=== PATIENT | female | born 1950 | race Caucasian/White ===

== ENCOUNTER 2018-03-04 06:30 | Inpatient (IN) | payer OTHER, MEDICARE ==
[2018-02-11 12:16] VITALS: BMI 39.0
--- NOTE | 2018-02-11 13:16 | PAT Medication Instructions ---
Service Date Feb 11, 2018. Current Home Medication List Acetaminophen (Tylenol), 500 MG PO PRN Albuterol Hfa (Ventolin Hfa), 2-4 PUFFS INH Q6H PRN for SOB/Wheezing Ascorbic Acid (Cvs Vitamin C), 1 TAB PO QAM Celecoxib (Celebrex), 1 TAB PO QAM Cholecalciferol (Vitamin D3), 3 TABS PO QAM Cyclosporine (Ophth) (Restasis), 2 DROPS OP BID Dulaglutide (Trulicity), 1 DOSE INJ WK Hydrochlorothiazide (Hydrochlorothiazide), 1 TAB PO QAM Hydrocodon/Acetaminophen 5MG/300MG (Vicodin (5MG/300MG)), 1 TAB PO Q4H PRN for Pain Hydroxychloroquine Sulfate (Hydroxychloroquine Sulfat), 1 TAB PO QPM Levothyroxine Sodium (Levothyroxine Sodium), 1 TAB PO DAILYBL Lisinopril (Zestril), 20 MG PO QAM Lorazepam (Lorazepam), 1 TAB PO HS Magnesium Oxide (Mag-Ox), 400 MG PO HS Metformin Hcl Er (Glucophage Er), 2 TAB PO QPM Montelukast Sod (Montelukast Sodium), 1 TAB PO HS Multivitamin (Multivitamin), 1 TAB PO QAM Ondansetron (Ondansetron HCl), 1 TAB PO Q8 PRN for Nausea or Vomiting Potassium (Potassium), 1 TAB PO HS Probiotic Product (Probiotic), 1 CAP PO QAM Ranitidine (Zantac), 1 TAB PO BID [agilease], 2 TAB PO QAM Medication Instructions For Your Scheduled Surgery -Follow your surgeon's instructions for: Celecoxib (Celebrex), 1 TAB PO QAM -Continue as directed: Dulaglutide (Trulicity), 1 DOSE INJ WK - Hold the following medications 2 weeks prior to surgery: [agilease], 2 TAB PO QAM - Hold the following medications the morning of surgery: Ascorbic Acid (Cvs Vitamin C), 1 TAB PO QAM Cholecalciferol (Vitamin D3), 3 TABS PO QAM Hydrochlorothiazide (Hydrochlorothiazide), 1 TAB PO QAM Lisinopril (Zestril), 20 MG PO QAM Multivitamin (Multivitamin), 1 TAB PO QAM Probiotic Product (Probiotic), 1 CAP PO QAM - Take the following medications the morning of surgery with a sip of water: Acetaminophen (Tylenol), 500 MG PO PRN (if needed, can be taken up to four hours before surgery) Albuterol Hfa (Ventolin Hfa), 2-4 PUFFS INH Q6H PRN for SOB/Wheezing (if needed , and bring it with yo to the hospital) Cyclosporine (Ophth) (Restasis), 2 DROPS OP BID (bring with you to the hospital) Levothyroxine Sodium (Levothyroxine Sodium), 1 TAB PO DAILY Hydrocodon/Acetaminophen 5MG/300MG (Vicodin (5MG/300MG)), 1 TAB PO Q4H PRN for Pain (if needed, can be taken up to four hours before surgery) Ondansetron (Ondansetron HCl), 1 TAB PO Q8 PRN for Nausea or Vomiting (if needed ) Ranitidine (Zantac), 1 TAB PO BID - Take the following medications as scheduled the night before surgery: Acetaminophen (Tylenol), 500 MG PO PRN (if needed) Albuterol Hfa (Ventolin Hfa), 2-4 PUFFS INH Q6H PRN for SOB/Wheezing (if needed) Cyclosporine (Ophth) (Restasis), 2 DROPS OP BID Hydrocodon/Acetaminophen 5MG/300MG (Vicodin (5MG/300MG)), 1 TAB PO Q4H PRN for Pain (if needed) Hydroxychloroquine Sulfate (Hydroxychloroquine Sulfat), 1 TAB PO QPM Lorazepam (Lorazepam), 1 TAB PO HS Magnesium Oxide (Mag-Ox), 400 MG PO HS Metformin Hcl Er (Glucophage Er), 2 TAB PO QPM Montelukast Sod (Montelukast Sodium), 1 TAB PO HS Ondansetron (Ondansetron HCl), 1 TAB PO Q8 PRN for Nausea or Vomiting (if needed ) Potassium (Potassium), 1 TAB PO HS Ranitidine (Zantac), 1 TAB PO BID If you have any questions please call us at [phone] or [phone] or [phone]
--- NOTE | 2018-02-11 14:13 | DIAGNOSTIC IMAGING REPORT ---
CHEST 2 VIEWS ROUTINE HISTORY: 67 years-old Female PAT preoperative exam. No acute chest complaints. COMPARISON: None available TECHNIQUE: PA and lateral views of the chest FINDINGS: Cardiac silhouette is enlarged. There is no pneumothorax, pleural effusion, focal airspace consolidation or overt pulmonary edema. Linear subsegmental bibasilar opacities favor atelectasis. Surgical clips of the right upper abdomen are noted suggesting prior cholecystectomy. Mild gaseous distention of the imaged colon. 60% anterior endplate compression deformity of a lower thoracic vertebral segment, likely T12 is technically age-indeterminate however appears chronic. IMPRESSION: 1. Cardiomegaly without acute process. 2.n60% anterior endplate compression deformity of a lower thoracic vertebral segment, likely T12 is age-indeterminate however appears chronic. The above report was generated using voice recognition software. It may contain grammatical, syntax or spelling errors. Electronically signed by: Miguel Duran M.D. 02/11/2018 2:12 PM Dictated Date/Time: 02/11/2018 2:09 PM
[2018-02-12 07:20] LABS: HEMOGLOBIN A1C 6.3 % (4.5-5.6)
--- NOTE | 2018-02-24 17:46 | HISTORY & PHYSICAL EXAMINATION ---
DATE OF ADMISSION: 03/04/2018 CHIEF COMPLAINT: Bilateral knee pain and discomfort, left side greater than right. HISTORY OF PRESENT ILLNESS: The patient is a 67-year-old female from [place] who presents for treatment of her knees. She has got a long history of bilateral knee pain and discomfort, left side a bit worse than the right. She has been through extensive conservative treatment in the past, which has become less successful over time. She has been trying to put this off, but it is really affecting her quality of life. She cannot walk for any significant distance. She has nighttime pain. Injection has helped her only temporarily. She would like to have her left knee replaced. Of note, the patient did have a right hip replaced by Dr. Mayes in 2008, has done well from that. She has had multiple foot operations that have not gone so well. PAST MEDICAL HISTORY: 1. Asthma. 2. Sleep apnea with CPAP machine. 3. Diabetes x10 years. 4. Hypothyroidism. 5. Back pain. 6. Gastroesophageal reflux disease. 7. Hiatal hernia. 8. Obesity with BMI of 40. PREVIOUS SURGICAL HISTORY: 1. Right hip [place] [address] Mayes. 2. Multiple foot operations done by Dr. Bender. 3. Appendectomy. 4. Hysterectomy. 5. Cholecystectomy 6. Thyroidectomy. 7. Carpal tunnel release. 8. Cataract surgery. ALLERGIES: DEMEROL. CURRENT MEDICATIONS: Include: 1. Lisinopril. 2. Hydrochlorothiazide 3. Celebrex. 4. Singulair. 5. Hydroxychloroquine 6. Metformin. 7. Trulicity. 8. Levothyroxine. 9. Ranitidine. 10. Restasis. 11. Ventolin inhaler. 12. Ondansetron. 13. Ativan. 14. Vicodin. 15. Multivitamin. 16. Vitamin C. 17. Vitamin D. 18. Magnesium. 19. Potassium. 20. Probiotic. 21. AgilEase. 22. Tylenol. SOCIAL HISTORY: This is a 67-year-old female patient from [place]. She lives by herself. Does not smoke. Rare alcohol intake. FAMILY HISTORY: Significant for diabetes. REVIEW OF SYSTEMS: Significant for diabetes. Denies any current chest pain or shortness of breath. No history of DVT or PE. PHYSICAL EXAMINATION: GENERAL: This is a pleasant middle-aged female, but looks to be in reasonably good health. HEENT: Benign. NECK: Supple. No lymphadenopathy. LUNGS: Clear to auscultation. HEART: Regular rate and rhythm. ABDOMEN: Soft, nontender, nondistended. EXTREMITIES: Grossly neurovascularly intact except as follows: Examination of both knees reveals the patient walks independently. Examination of the left knee reveals a slight valgus alignment. She got a moderate soft tissue envelope. Lvyty-ge-ltzljccu size knee effusion. Range of motion is 5-120. No instability. No pain with hip motion. Examination of the right knee reveals slight valgus alignment. Small knee effusion. Range of motion is 5-125. No instability. X-RAYS: X-rays of the left knee revealed advanced left knee DJD. She had a complete loss of her lateral joint space. She got significant patellofemoral disease as well. ASSESSMENT: A 67-year-old female with bilateral knee pain, degenerative joint disease, unresponsive to conservative treatment. The left side is a worse than the right and she would like to have her left knee replaced. PLAN: We will take her to the operating room and do left total knee replacement. The risks and benefits of this procedure were explained to the patient including, but not limited to DVT, PE, , infection, neurological injury, vascular injury, bleeding problem, pain, limited range of motion, stiffness, failure to relieve symptoms, incomplete relief of symptoms, need for further surgery in future, fracture, leg length inequality, nerve palsy, need for blood transfusion, etc. The patient understands and desires to proceed. Informed consent was obtained. We will hold her lisinopril on the morning of surgery. She will hold her metformin the morning of surgery as well. She will bring her CPAP machine to the hospital. She is planning to be discharged to home likely with some home health and a friend who will stay with her. MG
[~2018-03-04] VITALS: Ht 167.6 cm; Wt 111.2 kg
[2018-03-04] VITALS (8 sets, daily range): BP systolic 98–128; BP diastolic 62–80; PULSE 57–69; TEMP 36.6–36.9; O2SAT 96–100; Ht 167.6 cm; Wt 111.2 kg
[~2018-03-04 06:30] MED LIST: ACET-1256 PO; ACETAMINOPHEN 500 MG TAB PO SCH; AGILEASE PO; ATV5X PO; BUPIVACAINE LIPOSOME 266 MG, BUPIVACAINE/EPINEPHRINE INJ 50 ML, SODIUM CHLORIDE 0.9% PF... INFIL SCH; CEFAZOLIN 2000MG IV PUSH 15 ML IV SCH; CHOL20007 PO; CLB200 PO; CYCL0.052 OP; DULA1INJ INJ; FAMOTIDINE 20 MG TAB PO SCH; FENTANYL CITRATE INJ 50 MCG/1 ML 2 ML VIAL ONE; GABAPENTIN 300 MG CAP PO SCH; HYDR-3419 PO; HYDR25TA5 PO; LACTATED RINGER'S 1000ML IV SCH; LEVO125T5 PO; LIDOCAINE HCL 2% 2 ML VIAL (20MG/ML) ONE; LISI-725 PO; MAGN400T6 PO; METF500T5 PO; METOCLOPRAMIDE HCL 10 MG TAB PO SCH; MIDAZOLAM HCL 1 MG/ML 2ML VIAL ONE; MISCCAP80 PO; MULT-506 PO; ONDA4TAB9 PO; PLQ200 PO; POTA99TA PO; PROPOFOL IV EMULSION 10 MG/ML 20 ML VIAL ONE; RANI150T85 PO; SCOPOLAMINE 1.5 MG TDSY TD SCH; SNG10 PO; TRANEXAMIC ACID INJ 1,000 MG x 1 Bag Intra-Op IV SCH; VNTHFA/IN INH; [UNRECOGNIZED DRUG - CODE] PO
--- NOTE | 2018-03-04 06:53 | History & Physical Bridge Note ---
H&P Re-Evaluation Bridge Note: I have examined the patient, reviewed the History & Physical and in the interval since the performance of the History & Physical I have noted the following changes of clinical significance: No changes noted
[2018-03-04] MEDS ORDERED: FENTANYL CITRATE INJ 50 MCG/1 ML 2 ML VIAL IV PRN (07:30)
[2018-03-04] MEDS ORDERED: PROMETHAZINE HCL INJ 12.5 MG in SODIUM CHLORIDE 0.9% 50ML 50 ML IV PRN (07:30)
[2018-03-04] MEDS ORDERED: PHENYLEPHRINE 100MCG/ML 5ML SYR IV PRN (07:30)
[2018-03-04] MEDS ORDERED: ONDANSETRON INJ 2 MG/ML 2 ML VIAL IV PRN ×2 (07:30→11:00)
[2018-03-04] MEDS ORDERED: EpHEDrine SULFATE INJ 50 MG/ML AMP IV PRN (07:30)
[2018-03-04] MEDS ORDERED: HYDROmorphone INJ 0.5 MG/0.5 ML SYR IV PRN ×2 (07:30→11:00)
[2018-03-04] MEDS ORDERED: ATROPINE SULFATE 0.1 MG/ML 5ML SYR IV PRN (07:30)
[2018-03-04] MEDS ORDERED: BUPIVACAINE 0.25% 30 ML VIAL ONE ×2 (07:32→08:52)
[2018-03-04] MEDS ORDERED: BUPIVACAINE 0.5 % 5 MG/1 ML PF 10ML VIAL ONE (07:32)
[2018-03-04] MEDS ORDERED: ONDANSETRON INJ 2 MG/ML 2 ML VIAL ONE (07:49)
[2018-03-04] MEDS ORDERED: DEXAMETHASONE SOD INJ 4 MG/ML VIAL ONE (07:49)
[2018-03-04] MEDS ORDERED: BUPIVACAINE LIPOSOME 1/3% 266 MG/20 ML VIAL ONE (08:52)
[2018-03-04] MEDS ORDERED: BACITRACIN 50000 UNIT VIAL ONE (08:52)
[2018-03-04] MEDS ORDERED: SODIUM CHLORIDE 0.9% PF 50 ML VIAL ONE (08:52)
[2018-03-04] MEDS ORDERED: EpINEphrine INJ 1MG/ML AMP 1 MG/ML AMP ONE (08:53)
[2018-03-04] MEDS ORDERED: EpHEDrine SULFATE 50MG/5ML SYR ONE (09:28)
[2018-03-04] MEDS ORDERED: MIDAZOLAM HCL 1 MG/ML 2ML VIAL ONE (09:47)
[2018-03-04] MEDS ORDERED: PROPOFOL IV EMULSION 10 MG/ML 20 ML VIAL ONE ×2 (09:55→10:39)
--- NOTE | 2018-03-04 10:56 | [facility] Post Operative Brief Note ---
Immediate Operative Summary Operative Date March 04, 2018. Pre-Operative Diagnosis Left Knee Advanced Degenerative Joint Disease Post-Operative Diagnosis Left Knee Advanced Degenerative Joint Disease Procedure(s) Performed Left Total Knee Arthroplasty Surgeon Dr. Keating Fish Cutting Machine Operator Surgeon(s) BOZENA Gibbs Estimated Blood Loss 50 ml Findings Consistent with Post-Op Diagnosis Fluids (cc crystalloids) 1000 cc Specimens A. Left Knee Bone and Tissue Drains None Anesthesia Type MAC Spinal Regional Complication(s) none Disposition Accompanied Pt To Recover: no Disposition: Recovery Room / PACU Overlapping Procedure I was present for: the critical portions of procedure. I was immediately available: during the entire case
[2018-03-04] MEDS ORDERED: MAGNESIUM HYDROXIDE SUSP 30 ML UDC PO PRN (11:00)
[2018-03-04] MEDS ORDERED: METOCLOPRAMIDE HCL INJ 5 MG/ML 2 ML VIAL IV PRN (11:00)
[2018-03-04] MEDS ORDERED: GLUCOSE 10 TABS/TUBE PO PRN (11:00)
[2018-03-04] MEDS ORDERED: DEXTROSE 50% 50 ML SYR IV PRN (11:00)
[2018-03-04] MEDS ORDERED: ZOLPIDEM TARTRATE 5 MG TAB PO PRN (11:00)
[2018-03-04] MEDS ORDERED: ALUMINUM/MAGNESIUM/SIMETH (MAALOX MAX) 30 ML UDC PO PRN (11:00)
[2018-03-04] MEDS ORDERED: GLUCAGON FOR INJ 1 MG VIAL SQ PRN (11:00)
[2018-03-04] MEDS ORDERED: DiphenhydrAMINE HCL 50 MG/ML VIAL IV PRN (11:00)
[2018-03-04] MEDS ORDERED: CARBOHYDRATES FOR HYPOGLYCEMIA PO PRN (11:00)
[2018-03-04] MEDS ORDERED: BISACODYL 10 MG SUPP PR PRN (11:00)
[2018-03-04] MEDS ORDERED: SILVER SULFADIAZINE 1% CR 50 GM JAR EXT PRN (11:00)
[2018-03-04] MEDS ORDERED: GLUCOSE 40% GEL 15 GM TUBE PO PRN (11:00)
--- NOTE | 2018-03-04 11:34 | Anesthesiology Progress Note ---
Anesthesia Post Op Note Date & Time March 04, 2018 at 11:34 Vital Signs Pain Intensity: 0 Vital Signs Past 12 Hours Date Time Temp Pulse Resp B/P (MAP) Pulse Ox O2 Delivery O2 Flow Rate FiO2 03/04/18 11:21 70 12 03/04/18 11:21 68 12 95/50 99 03/04/18 11:16 67 14 93/44 100 03/04/18 11:16 65 14 03/04/18 11:11 60 12 108/47 100 03/04/18 11:11 61 12 03/04/18 11:07 101/53 03/04/18 11:06 81 13 03/04/18 11:06 84 13 100 03/04/18 11:04 103/47 03/04/18 11:02 87/63 03/04/18 11:01 37.0 81 20 103/47 100 Oxymask 10 03/04/18 06:57 36.8 61 20 128/66 99 Room Air Notes Mental Status: alert / awake / arousable, participated in evaluation Pt Amnestic to Procedure: Yes Nausea / Vomiting: adequately controlled Pain: adequately controlled Airway Patency, RR, SpO2: stable & adequate BP & HR: stable & adequate Hydration State: stable & adequate Neuraxial Anesthesia: was administered, sensory block is resolving Anesthetic Complications: no major complications apparent Awake, doing well, no complaints. VSS.
--- NOTE | 2018-03-04 11:55 | DIAGNOSTIC IMAGING REPORT ---
LEFT KNEE 2 VIEWS History: Left total knee arthroplasty. Degenerative arthritis. Postop. FINDINGS: The patient is status post a left total knee arthroplasty. The hardware is intact. No fracture or dislocation. Skin raymon are in place. IMPRESSION: Left total knee arthroplasty. No evidence for hardware complication. Electronically signed by: Chu Browning M.D. 03/04/2018 11:54 AM Dictated Date/Time: 03/04/2018 11:51 AM
--- NOTE | 2018-03-04 13:01 | OPERATIVE REPORT ---
DATE OF OPERATION: 03/04/2018 SURGEON: Ajay Keating MD OIL HEATERMAN: BOZENA Rdz PREOPERATIVE DIAGNOSIS: Left knee degenerative joint disease. POSTOPERATIVE DIAGNOSIS: Same. PROCEDURE PERFORMED: Left cemented posterior stabilized total knee arthroplasty. COMPLICATIONS: None. ESTIMATED BLOOD LOSS: 50 mL. FLUID REPLACEMENT: 1000 mL crystalloid fluid replacement. ANESTHESIA: Spinal with adductor canal block. DRAINS: None. SPECIMENS: Left knee sent for pathology. TOURNIQUET TIME: 59 minutes at 300 mmHg. OPERATIVE INDICATIONS: The patient is a 67-year-old female who has had a very long history of bilateral knee pain and discomfort, left side a bit worse than the right. She had been through extensive conservative treatment which has failed. This is really starting to limit her lifestyle and she elected to proceed with total knee arthroplasty on the left side. OPERATIVE FINDINGS: Operative findings revealed advanced left knee DJD. She had grade 4 [id number]-[id number] disease in all 3 compartments, most severe in the lateral and patellofemoral compartments with eburnation in both areas. She had valgus alignment to her knee. She had a moderate sized joint effusion. OPERATIVE IMPLANTS: Operative implants consisted of: 1. Biomet Vanguard size 62.5 left posterior bifemoral component. 2. Biomet size 67 tibial tray. 3. A 12 mm posterior stabilized polyethylene insert. 4. A 31 x 8 all poly patella. OPERATIVE PROCEDURE: The patient was taken to the operating room, identified and placed on the operating table room in supine position. All contact areas were appropriately padded. IV antibiotics were provided by anesthesia team. A spinal anesthetic and adductor canal block had been provided in the holding area. Melgar catheter was placed in sterile fashion. Left thigh tourniquet was then placed and left lower extremity was then prepped and draped in usual sterile fashion. The left leg was elevated and exsanguinated with Esmarch. Tourniquet was placed at 300 mmHg. An anterior approach to the left knee was then performed through a longitudinal incision centered over the patella. Sharp dissection was carried through subcutaneous tissue down to the level of the extensor mechanism. A medial parapatellar arthrotomy incision was made. Some subperiosteal dissection was carried out medially. The fat pad resected from beneath the patellar tendon. Lateral patellofemoral ligament was released. Patella was everted and knee was flexed. There are some portions of the patella laterally which were excised. The osteophytes were taken off the distal femur. The ACL and PCL were then released from the distal femur. The tibia subluxated anteriorly. The external tibial alignment jig was then placed in the anterior face of the tibia and adjusted 14 mm medially. Proximal tibial cut was made to remove about 2-3 mm of bone from the medial side. Tibia was sized to a size 67. Attention was then drawn to the femur. The distal femur was entered with a sharp drill. The intramedullary canal was suctioned. A left 5-degree valgus cutting guide was placed. Distal femoral cutting block was pinned in place and distal femoral cut was made to take an additional 3 mm of bone off the distal femur. The knee was then brought out into extension. I did release just a little bit the IT band to equalize the extension gap. The femur was then sized to a size 62.5. We did downsize this slightly. The AP cutting block was pinned parallel to the epicondylar axis, which was 8 degrees of external rotation. The anterior cut, anterior chamfer, posterior cut, posterior chamfer cuts were made. Box cutting guide was placed and adjusted slightly lateral and the box cut was made. The knee was flexed. The remnants of the medial and lateral menisci were excised. The osteophytes were taken off the posterior aspect of the femur. I did release the popliteus in order to equalize the flexion gap. The trial femoral component was placed. Tibial tray was pinned in maximum external rotation, and drill and stem punch were used to create defect in proximal tibia for the tibial tray. The knee was then trialed and the 12 mm insert fit most appropriately. Attention was then drawn to the patella. The patella was cleaned of all soft tissue. Patella thickness measured 18 mm in thickness, it was cut down to 12. It was sized to a size 31 patella. Lateral osteophyte was removed. Patella button was placed. Knee was taken through range of motion and patella tracked nicely with no thumbs test. Attention was then drawn toward placement of the permanent components. All trial components were removed. A bone plug was placed in the distal femur to limit blood loss. A double batch of Palacos G cement was mixed. A left size 62.5 posterior stabilized femoral component, size 67 tibial tray, 12 mm posterior stabilized polyethylene insert, and a 31 x 8 all poly patella then cemented in place. Knee was brought into full extension until cement hardened. A final cement check was then performed. The pericapsular tissues were injected with a total of 100 mL of a combination of 20 mL of Exparel, 30 mL of normal saline, 50 mL of 0.25% Marcaine with epinephrine. The patient did receive 1 gram of tranexamic acid. The tourniquet was then let down for final tourniquet time of 59 minutes. Hemostasis was assured with use of electrocautery. The wound was once again irrigated. The extensor mechanism was then closed with a combination of #1 PDS suture and #1 Vicryl suture in [id number] fashion. Extensor mechanism was checked and found to be intact. Subcutaneous tissue was then closed with #2 Dexon suture in a buried interrupted fashion. Skin was closed with skin raymon. Leg was then cleaned, dried and a sterile dressing of Xeroform, 4 x 4's, sterile cast padding and Michael bandage were applied. The patient was then transferred to the recovery room in stable condition. The patient tolerated the procedure well with no complication. All needle and sponge counts were correct at the end of the operation. I attest to the content of the Intraoperative Record and any orders documented therein. Any exception s are noted below.
[2018-03-04] MEDS ORDERED: ALBUTEROL HFA 8 GM INHALER INH PRN (13:15)
[2018-03-04] MEDS: SODIUM CHLORIDE 0.9% 1000ML 1,000 ML IV SCH ×2 (13:30→21:46)
[2018-03-04] MEDS: KETOROLAC TROMETHAMINE 15 MG/ML VIAL IV. SCH ×2 (13:32→20:39)
[2018-03-04] MEDS ORDERED: ONDANSETRON 4 MG TAB PO PRN (14:00)
--- NOTE | 2018-03-04 14:05 | PROGRESS NOTE ---
DATE: 03/04/2018 SUBJECTIVE: A 67-year-old female postop from a left knee replacement. She is doing well. Pain is controlled. Just starting to get some pain in her leg. No chest pain or shortness of breath. Not feeling dizzy or lightheaded. OBJECTIVE: VITAL SIGNS: Temperature is 36.6. Vital signs stable. PHYSICAL EXAMINATION: GENERAL: Reveals a pleasant, middle-aged female. She is sitting up in bed and looks quite comfortable. She is talking with one of her friends. LUNGS: Clear to auscultation. HEART: Has a regular rate and rhythm. ABDOMEN: Soft, nontender, nondistended. EXTREMITIES: Grossly neurovascularly intact except as follows: Examination of the left leg reveals the leg to be well aligned. Dressing is clean, dry and intact. She can dorsiflex and plantarflex her foot appropriately. She is neurologically intact. X-RAYS: X-ray of the left knee from recovery room reviewed. It shows a left cemented posterior stabilized total knee arthroplasty. Components looked to be in good position. No signs of problems. ASSESSMENT: A 67-year-old white female postop from a left knee replacement, doing well. Pain is controlled. She is neurologically intact. PLAN: 1. DVT prophylaxis including thigh-high TEDs, SCDs, and aspirin twice a day. 2. PT/OT. Weight bear as tolerated. Left total knee protocol. 3. Pain control, doing well with current pain regimen. 4. IV antibiotics x 24 hours. 5. Disposition: She is open to be discharged home with some home health. She has some friends that are going to come and stay with her and help her for the first couple weeks.
[2018-03-04] MEDS: ACETAMINOPHEN 500 MG TAB PO SCH ×2 (14:55→22:37)
[2018-03-04] MEDS: CHECK SCOPOLAMINE PATCH PLACEMENT SCH ×2 (16:15→23:07)
[2018-03-04] MEDS ORDERED: TRANEXAMIC ACID INJ 1,000 MG in SODIUM CHLORIDE 0.9% 100ML 100 ML IV SCH (17:00)
[2018-03-04] MEDS: CEFAZOLIN IV 2,000 MG in SYRINGE 0 ML IV SCH (17:32)
[2018-03-04] MEDS: FERROUS GLUCONATE 324 MG TAB PO SCH (17:33)
[2018-03-04] MEDS: INSULIN HUMAN REGULAR SC SCH ×2 (17:34→20:59)
[2018-03-04] MEDS: OXYCODONE HCL IR 5 MG TAB (IMMEDIATE RELEASE) PO PRN (17:51)
[2018-03-04] MEDS: TAPENTADOL ER 50 MG TABCR PO SCH (20:38)
[2018-03-04] MEDS: LORAZEPAM 0.5 MG TAB PO SCH (20:38)
[2018-03-04] MEDS: MONTELUKAST SOD 10 MG TAB PO SCH (20:39)
[2018-03-04] MEDS: RANITIDINE HCL 150 MG TAB PO SCH (20:39)
[2018-03-04] MEDS: MAGNESIUM OXIDE 400 MG TAB PO SCH (20:40)
[2018-03-04] MEDS: DOCUSATE SODIUM 100 MG CAP PO SCH (20:40)
[2018-03-04] MEDS: ASPIRIN 81 MG ECTAB PO SCH (20:41)
[2018-03-04] MEDS: HYDROXYCHLOROQUINE SULFATE 200 MG TAB PO SCH (20:41)
[2018-03-04] MEDS: SENNA 8.6 MG TAB PO SCH (20:41)
[2018-03-05] MEDS: KETOROLAC TROMETHAMINE 15 MG/ML VIAL IV. SCH ×4 (01:29→20:53)
[2018-03-05] MEDS: CEFAZOLIN IV 2,000 MG in SYRINGE 0 ML IV SCH (01:29)
[2018-03-05 03:05] VITALS: BP 105/65; PULSE 72; TEMP 36.7; O2SAT 96
[2018-03-05] MEDS: SODIUM CHLORIDE 0.9% 1000ML 1,000 ML IV SCH (05:51)
[2018-03-05] MEDS: LEVOTHYROXINE 125 MCG TAB PO SCH (05:52)
[2018-03-05] MEDS: ACETAMINOPHEN 500 MG TAB PO SCH ×2 (05:53→18:55)
[2018-03-05 06:09] LABS: HEMATOCRIT 28.4 % (37-47); HEMOGLOBIN 9.5 g/dL (12.0-16.0); MEAN CELL VOLUME 86.9 fL (80-100); MEAN CORPUSCULAR HEMOGLOBIN 29.1 pg (25-34); MEAN CORPUSCULAR HGB CONC 33.5 g/dl (32-36); MEAN PLATELET VOLUME 8.8 fL (7.4-10.4); PLATELET COUNT 175 K/uL (130-400); RED CELL DISTRIBUTION WIDTH CV 13.1 % (11.5-14.5); RED CELL DISTRIBUTION WIDTH SD 41.9 fL (36.4-46.3); WHITE BLOOD COUNT 7.73 K/uL (4.8-10.8)
[2018-03-05 06:37] VITALS: BP 98/62; PULSE 55; TEMP 36.6; O2SAT 100
[2018-03-05 06:42] LABS: CALCIUM 7.9 mg/dl (8.5-10.1); CREATININE 0.93 mg/dl (0.60-1.20)
[2018-03-05] MEDS: INSULIN HUMAN REGULAR SC SCH ×4 (08:00→21:00)
[2018-03-05] MEDS: CHECK SCOPOLAMINE PATCH PLACEMENT SCH ×2 (08:00→16:00)
[2018-03-05] MEDS: OXYCODONE HCL IR 5 MG TAB (IMMEDIATE RELEASE) PO PRN ×3 (08:22→20:57)
[2018-03-05] MEDS: TAPENTADOL ER 50 MG TABCR PO SCH ×2 (08:23→20:56)
[2018-03-05] MEDS: FERROUS GLUCONATE 324 MG TAB PO SCH ×3 (08:24→18:55)
[2018-03-05] MEDS: DOCUSATE SODIUM 100 MG CAP PO SCH ×2 (08:24→20:51)
[2018-03-05] MEDS: MULTIVITAMIN TAB PO SCH (08:25)
[2018-03-05] MEDS: RANITIDINE HCL 150 MG TAB PO SCH ×2 (08:25→20:52)
[2018-03-05] MEDS: ASCORBIC ACID 500 MG TAB PO SCH (08:26)
[2018-03-05] MEDS: ASPIRIN 81 MG ECTAB PO SCH ×2 (08:26→20:54)
[2018-03-05] MEDS: HYDROCHLOROTHIAZIDE 25 MG TAB PO SCH (08:27)
[2018-03-05] MEDS: PANTOprazole SOD 40 MG TAB PO SCH (08:27)
[2018-03-05] MEDS: CHOLECALCIFEROL 1000 INTER.UNIT TAB PO SCH (08:29)
[2018-03-05] MEDS: CycloSPORINE 0.05% 0.4 ML 30 UDV/BOX OP SCH ×2 (08:31→20:53)
[2018-03-05] MEDS: LISINOPRIL 20 MG TAB PO SCH (09:00)
[2018-03-05] MEDS ORDERED: AGILEASE PO SCH (09:00)
[2018-03-05] MEDS ORDERED: MULTIVITAMIN TAB PO SCH (09:00)
--- NOTE | 2018-03-05 10:18 | PROGRESS NOTE ---
DATE: 03/05/2018 SUBJECTIVE: A 67-year-old white female, postop day 1 from a left knee replacement. She is doing pretty well. Pain is better than she expected. No chest pain or shortness of breath. Not feeling dizzy or lightheaded. OBJECTIVE: VITAL SIGNS: Temperature 36.6. Vital signs stable. GENERAL: Reveals a pleasant, middle-aged female. She is sitting up in bed, looks pretty comfortable. LUNGS: Clear to auscultation. HEART: Regular rate and rhythm. ABDOMEN: Soft, nontender, nondistended. EXTREMITIES: Grossly neurovascularly intact except as follows. Examination of the left leg reveals it to be well aligned. There is a little reinforcement of her dressing from some slight bloody drainage. She can dorsiflex and plantarflex her foot appropriately. She is neurologically intact. LABORATORY DATA: Hemoglobin 9.5. Hematocrit 28.4. Electrolytes are stable. ASSESSMENT: A 67-year-old white female postop day 1 from a left knee replacement, doing pretty well. Pain is controlled. She is a slightly anemic, but without symptoms. PLAN: 1. DVT prophylaxis including thigh-high TEDs, SCDs, and aspirin twice a day. 2. PT/OT. Weightbear as tolerated. Left total knee protocol. 3. Pain control, doing well with current pain regimen. 4. Anemia. She is asymptomatic. We will continue iron supplementation. 5. Disposition: Plan to discharge to home with some home health once adequately recovered.
[2018-03-05 11:15] VITALS: BP 110/71; PULSE 66; TEMP 36.8; O2SAT 97
[2018-03-05 15:16] VITALS: BP 122/74; PULSE 63; TEMP 36.9; O2SAT 100
[2018-03-05] MEDS ORDERED: RXC5 PO (18:28)
[2018-03-05] MEDS ORDERED: ACET-24 PO (18:28)
[2018-03-05] MEDS ORDERED: FRRG PO (18:28)
[2018-03-05] MEDS ORDERED: ASPI-320 PO (18:28)
--- NOTE | 2018-03-05 18:47 | Discharge Instructions ---
Discharge Instructions Date of Service March 05, 2018. Admission Reason for Admission: Left Knee Degenerative Joint Disease Discharge Discharge Diagnosis / Problem: Left Knee Replacement Discharge Goals Goal(s): Decrease discomfort, Improve function, Increase independence, Improve disease control, Therapeutic intervention Activity Recommendations Activity Limitations: per Instructions/Follow-up section Weightbearing Status: Left weightbearing . Instructions / Follow-Up Instructions / Follow-Up ACTIVITY RECOMMENDATIONS: Physical Therapy: * You will go to physical therapy three times each week for four to six weeks after your surgery in order to regain your knee range of motion and to retrain your knee to work properly. * It is just as important to make sure you are getting your knee perfectly straight as it is to regain your knee bend. * Taking a pain pill an hour before therapy can help you have a more productive and comfortable therapy session. Home Exercise: * You were shown a series of exercises (heel props, heel slides, etc.) in the hospital. Do these exercises three to four times each day including the exercises you were shown in physical therapy. Walking: * Get up and walk several times each day. For the first four weeks, try not to stand or walk for more than one hour at a time. If you do stand or walk for more than one hour, you will not hurt anything, but your knee and leg will likely swell. * As you feel comfortable, you may change from the walker or crutches to a cane and then to independent walking. MEDICATIONS: New Medicine: * You will likely be taking one or more of these medications: 1. Oxycodone - A quick and shorter-acting pain medication. Take one to two tablets every four to six hours to lessen your pain. 2. Iron Sulfate - Take two times each day for the month after surgery to help you replace the blood lost during surgery. 3. Aspirin - Thins your blood to lessen the chance of forming a blood clot. * The most common side effects of pain medicine and iron are nausea and constipation. If nausea or constipation is too much of a problem or if you have any questions about your new medicines or doses, call [facility] at . We will try to help you manage these issues. VERY IMPORTANT TO READ AND REVIEW" Pain: * The immediate post-operative period after knee replacement surgery is often quite painful. * You are given a prescription for pain medicine. You should take it, as directed, when you need it, especially before physical therapy and before going to bed. Pain that interferes with sleep is very common and can last several months. * You will likely need pain medicine for the first four to six weeks. It will not stop all of the pain. The pain will lessen and as you feel better, you may change to milder pain medicine such as Tylenol. * The most common side effects of pain medicine are nausea and constipation, so don't take more than you need. SPECIAL CARE INSTRUCTIONS: TEDs/Elastic Stockings: * The white elastic stockings help limit swelling and prevent blood clots from forming in your legs. The more you wear them, the more they work. * Wear them for six weeks after knee replacement surgery and four weeks after partial knee replacement. Prevention of Infection: * Take antibiotics one hour before any dental cleaning, dental work, urological procedure, gastrointestinal procedure or any invasive surgery in order to prevent your new joint from getting infected. * You may get the antibiotics from the doctor performing the procedure or you may call our office at before and we will call in a prescription to the pharmacy of your choice. Things to Watch For: * Drainage from the incision site that occurs more than one week after your surgery. * Severely increased knee/leg pain or swelling. * Increased redness at the incision site. * Fever above 102 degrees Fahrenheit. * Unusual chest pain or shortness of breath. * Unusual pain or burning with urination. Call [facility] at with any of the above problems or if you have any questions about your medicines or recovery. FOLLOW UP VISIT: Make an appointment to see your doctor for approximately two weeks after surgery for a progress check and staple removal by calling the office at . Current Hospital Diet Patient's current hospital diet: Diabetes Type 2 Diet Discharge Diet Recommended Diet: Diabetes Type 2 Diet Procedures Procedures Performed: Left Total Knee Arthroplasty Pending Studies Studies pending at discharge: no Laboratory Results Hemoglobin A1c Test 02/11/18 13:47 Range/Units Estimated Average Glucose 134 mg/dl Hemoglobin A1c 6.3 H 4.5-5.6 % Medical Emergencies . Who to Call and When: Medical Emergencies: If at any time you feel your situation is an emergency, please call [phone] immediately. . Non-Emergent Contact Non-Emergency issues call your: Surgeon . "Provider Documentation" section prepared by Ajay Keating. .
[2018-03-05] MEDS: SENNA 8.6 MG TAB PO SCH (20:51)
[2018-03-05] MEDS: MAGNESIUM OXIDE 400 MG TAB PO SCH (20:52)
[2018-03-05] MEDS: MONTELUKAST SOD 10 MG TAB PO SCH (20:52)
[2018-03-05] MEDS: HYDROXYCHLOROQUINE SULFATE 200 MG TAB PO SCH (20:53)
[2018-03-05] MEDS: LORAZEPAM 0.5 MG TAB PO SCH (20:57)
[2018-03-05] MEDS ORDERED: NURSING DECISION MEDICATION ORDER SCH (22:00)
[2018-03-05 23:07] VITALS: BP 111/68; PULSE 72; TEMP 37; O2SAT 100
[2018-03-06] MEDS: CHECK SCOPOLAMINE PATCH PLACEMENT SCH ×2 (00:42→08:00)
[2018-03-06] MEDS: ACETAMINOPHEN 500 MG TAB PO SCH ×2 (02:24→13:30)
[2018-03-06] MEDS: KETOROLAC TROMETHAMINE 15 MG/ML VIAL IV. SCH ×2 (02:26→08:42)
[2018-03-06] MEDS: LEVOTHYROXINE 125 MCG TAB PO SCH (05:56)
[2018-03-06] MEDS: OXYCODONE HCL IR 5 MG TAB (IMMEDIATE RELEASE) PO PRN ×2 (07:29→13:29)
[2018-03-06 07:44] VITALS: BP 116/72; PULSE 63; TEMP 36.8; O2SAT 99
[2018-03-06] MEDS: FERROUS GLUCONATE 324 MG TAB PO SCH ×2 (08:44→13:31)
[2018-03-06] MEDS: CycloSPORINE 0.05% 0.4 ML 30 UDV/BOX OP SCH (08:44)
[2018-03-06] MEDS: DOCUSATE SODIUM 100 MG CAP PO SCH (08:44)
[2018-03-06] MEDS: ASPIRIN 81 MG ECTAB PO SCH (08:45)
[2018-03-06] MEDS: HYDROCHLOROTHIAZIDE 25 MG TAB PO SCH (08:45)
[2018-03-06] MEDS: RANITIDINE HCL 150 MG TAB PO SCH (08:46)
[2018-03-06] MEDS: MULTIVITAMIN TAB PO SCH (08:46)
[2018-03-06] MEDS: ASCORBIC ACID 500 MG TAB PO SCH (08:46)
[2018-03-06] MEDS: CHOLECALCIFEROL 1000 INTER.UNIT TAB PO SCH (08:47)
[2018-03-06] MEDS: LISINOPRIL 20 MG TAB PO SCH (08:48)
[2018-03-06] MEDS: PANTOprazole SOD 40 MG TAB PO SCH (08:48)
--- NOTE | 2018-03-06 08:52 | PROGRESS NOTE ---
DATE: 03/06/2018 SUBJECTIVE: This is a 67-year-old white female postop day 2 from a left knee replacement. The knee is a little bit more painful this morning. No chest pain or shortness of breath. Not feeling dizzy or lightheaded. OBJECTIVE: VITAL SIGNS: Temperature 36.8. Vital signs stable. PHYSICAL EXAMINATION: GENERAL: Physical examination shows a pleasant middle-aged female. She is sitting up in bed doing heel prop and looks reasonably comfortable. EXTREMITIES: Examination of the left leg reveals some moderate swelling. The incision is clean, dry, and intact. No drainage. Calf is soft and supple. She is neurologically intact. ASSESSMENT: This is a 67-year-old white female postoperative day 2 from a left knee replacement, doing reasonably well. Pain is controlled. She is a bit slightly anemic, but without symptoms. PLAN: 1. DVT prophylaxis including thigh-high TEDs, SCDs, and aspirin twice a day. 2. PT/OT. Weightbear as tolerated. Left total knee protocol. 3. Pain control, doing well with current pain regimen. 4. Anemia. Currently, asymptomatic. Continue iron supplementation. 5. Disposition: Plan to discharge to home with some home health later today.
[2018-03-06] MEDS: INSULIN HUMAN REGULAR SC SCH ×2 (08:54→12:00)
[2018-03-06] MEDS: TAPENTADOL ER 50 MG TABCR PO SCH (08:58)
[2018-03-06 11:03] VITALS: BP 116/72; PULSE 63; TEMP 36.8; O2SAT 99
--- NOTE | 2018-03-08 15:26 | DISCHARGE SUMMARY ---
ADMITTING PHYSICIAN AND SURGEON: Dr. Keating. ADMITTING DIAGNOSIS: Left knee degenerative joint disease. SURGERY PERFORMED: Left total knee arthroplasty. SECONDARY DIAGNOSES: Asthma, sleep apnea, diabetes, hypothyroidism, back pain, gastroesophageal reflux disease, hiatal hernia, obesity. CONSULTS: None obtained. HISTORY AND PHYSICAL EXAMINATION: Well documented in the patient's chart. HOSPITAL COURSE: The patient was admitted on 03/04/2018, underwent total knee arthroplasty, tolerated the procedure well. There were no complications. She was transferred to the PACU postoperatively and later to the orthopedic floor for further care. She was given Ancef for antibiotic prophylaxis, GOPI stockings, SCDs, and aspirin for DVT prophylaxis. Hemoglobin, hematocrit, and vital signs were monitored during hospital stay and remained stable. She developed some postoperative anemia with hemoglobin of 9.5 and did not require any blood transfusions. She was given an iron supplement. There were no complications. By postoperative day 2, she was tolerating a diabetic diet. Pain was controlled with oral pain medicine. She was participating in physical therapy. Postop day 2, she was discharged home, set up with home health services. She was given printed discharge instructions including new prescriptions for extra strength Tylenol, aspirin, iron supplement, and oxycodone. Continue her home medicines with exception of her home doses of aspirin and Vicodin which were stopped. Continue physical therapy. She is weightbearing as tolerated, GOPI stockings. Follow up in 10-12 days or sooner if there are any problems or concerns.
== END 2018-03-06 14:40 | disposition home health service (06) | DRG 470 ==
LOC: C.ACU 06:30 → C.3E 06:50 → ENRESERV 11:51
PROVIDERS: ADMIT Orthopaedic Surgery Sports Medicine; ATTEND Orthopaedic Surgery Sports Medicine
PROC: 0SRD0J9 Replacement of Left Knee Joint with Synthetic Substitute, Cemented, Open Approach (ICD-10-PCS; principal; 2018-03-04 09:00)
DX: M17.0 Bilateral primary osteoarthritis of knee (principal); Z68.41 Body mass index [BMI] 40.0-44.9, adult; D64.9 Anemia, unspecified; J45.909 Unspecified asthma, uncomplicated; G47.30 Sleep apnea, unspecified; E11.9 Type 2 diabetes mellitus without complications; E89.0 Postprocedural hypothyroidism; K21.9 Gastro-esophageal reflux disease without esophagitis; E66.9 Obesity, unspecified; Z79.899 Other long term (current) drug therapy; Z79.84 Long term (current) use of oral hypoglycemic drugs; Z96.641 Presence of right artificial hip joint; Z88.5 Allergy status to narcotic agent

== ENCOUNTER 2022-02-20 08:23 | Observation (INO) ==
--- NOTE | 2022-01-20 16:22 | PAT Medication Instructions ---
Medication Instructions Date of Service January 20, 2022 Home Medications Lactobacillus acidophilus 10 billion cell capsule (Probiotic) 10,000 mmu cells PO QAM acetaminophen 325 mg tablet (Tylenol) 325 - 650 mg PO QID PRN albuterol sulfate 90 mcg/actuation aerosol inhaler 1 inh INHALATION QID PRN baclofen 10 mg tablet 10 mg PO BID celecoxib 200 mg capsule (Celebrex) 200 mg PO QAM dicyclomine 10 mg capsule 10 mg PO TID PRN fiber 1 - 2 tab PO BID fluticasone 250 mcg-salmeterol 50 mcg/dose blistr powdr for inhalation (Advair Diskus) 1 inh INHALATION BID gabapentin 300 mg capsule 300 mg PO HS hydrochlorothiazide 25 mg tablet 25 mg PO QAM hydroxychloroquine 200 mg tablet (Plaquenil) 200 mg PO QPM ibuprofen 200 mg tablet (Advil) 200 mg PO Q6H PRN levothyroxine 125 mcg tablet 125 mcg PO QAM lorazepam 1 mg tablet 1 mg PO DAILY PRN magnesium oxide 400 mg PO BID metformin 500 mg tablet,extended release 24 hr 1,000 mg PO QPM montelukast 10 mg tablet (Singulair) 10 mg PO HS multivitamin 1 tab PO QAM omeprazole 20 mg tablet,delayed release 20 mg PO QAM pitavastatin calcium 1 mg tablet (Livalo) 1 mg PO QAM potassium 99 mg tablet 99 mg PO HS valsartan 80 mg capsule 80 mg PO QAM ASK your surgeon for instructions celecoxib 200 mg capsule (Celebrex) 200 mg PO QAM ibuprofen 200 mg tablet (Advil) 200 mg PO Q6H PRN ASK your prescriber and surgeon hydroxychloroquine 200 mg tablet (Plaquenil) 200 mg PO QPM DO NOT take the morning of surgery Lactobacillus acidophilus 10 billion cell capsule (Probiotic) 10,000 mmu cells P O QAM baclofen 10 mg tablet 10 mg PO BID dicyclomine 10 mg capsule 10 mg PO TID PRN fiber 1 - 2 tab PO BID hydrochlorothiazide 25 mg tablet 25 mg PO QAM magnesium oxide 400 mg PO BID multivitamin 1 tab PO QAM valsartan 80 mg capsule 80 mg PO QAM Take morning of surgery With a small sip of water, OTHERWISE NOTHING TO EAT OR DRINK AFTER MIDNIGHT: acetaminophen 325 mg tablet (Tylenol) 325 - 650 mg PO QID PRN (okay to take up to 4 hours prior to surgery if needed) albuterol sulfate 90 mcg/actuation aerosol inhaler 1 inh INHALATION QID PRN (use if needed; please bring rescue inhaler with you to hospital day of surgery if possible) fluticasone 250 mcg-salmeterol 50 mcg/dose blistr powdr for inhalation (Advair Diskus) 1 inh INHALATION BID levothyroxine 125 mcg tablet 125 mcg PO QAM lorazepam 1 mg tablet 1 mg PO DAILY PRN (if needed) omeprazole 20 mg tablet,delayed release 20 mg PO QAM pitavastatin calcium 1 mg tablet (Livalo) 1 mg PO QAM Take evening before surgery acetaminophen 325 mg tablet (Tylenol) 325 - 650 mg PO QID PRN (if needed) albuterol sulfate 90 mcg/actuation aerosol inhaler 1 inh INHALATION QID PRN (if needed) baclofen 10 mg tablet 10 mg PO BID dicyclomine 10 mg capsule 10 mg PO TID PRN (if needed) fiber 1 - 2 tab PO BID fluticasone 250 mcg-salmeterol 50 mcg/dose blistr powdr for inhalation (Advair Diskus) 1 inh INHALATION BID gabapentin 300 mg capsule 300 mg PO HS lorazepam 1 mg tablet 1 mg PO DAILY PRN (if needed) magnesium oxide 400 mg PO BID metformin 500 mg tablet,extended release 24 hr 1,000 mg PO QPM montelukast 10 mg tablet (Singulair) 10 mg PO HS potassium 99 mg tablet 99 mg PO HS Other Notes If you have any questions please call us at [phone] or [phone] or [phone] or [phone]
--- NOTE | 2022-01-22 13:47 | Anesthesiology Consultation ---
Date of Service January 22, 2022 Assessment & Plan (1) Encounter for pre-operative examination: Chart Review Chart Review: Pending: Refer to Additional Notes / Consult section (pending most recent cardiac cath, most recent cardio note, response on 2017 stress test if available and preop Covid testing results ) and Patient seen in Pre Admission Testing -Will attempt to get most recent cath (please fax KYLEE Wren) in the past six years if available and most recent cardio note (from [facility]) as well as cardio response on 08/2018 stress test - Check BSG AM DOS Per PAT appt on 01/22/22, patient denies any recent travel or large group activities. No known Covid positive exposures or Covid related symptoms. No known Covid infection in the past 90 days. Pt vaccinated for Covid. Preop Covid testing scheduled 02/17/22= will await results. Educated on importance of self quarantining, social distancing and wearing mask in public for the patient one week prior to surgery and after Covid testing done Left TKA 03/04/18= Done under SAB at L3-4 with 1 attempt. Teaching & Discussion Pre-Anesthesia Teaching/Discussion Notes: Instructed NPO after midnight before surgery,except medications with 15 cc of water. Medication instructions provided according to the PAT guidelines. History Surgery Operation Date: 02/20/22 08:50 Proposed Procedures p Right Total Knee Arthroplasty - Ajay Keating MD Height/Weight Height: 5 ft 7 in Weight: 109.7 kg Allergies Allergy/AdvReac Type Severity Reaction Status Date / Time meperidine AdvReac Intermediate N/V Verified 01/20/22 09:49 [id number] Reductase AdvReac Mild MUSCLE Verified 01/20/22 09:50 Inhibitor CRAMPS Medications Home Medications Medication Instructions Recorded Confirmed Last Taken Lactobacillus acidophilus 10 10,000 mmu cells PO QAM 01/20/22 01/20/22 Unknown billion cell capsule (Probiotic) acetaminophen 325 mg tablet 325 - 650 mg PO QID PRN 01/20/22 01/20/22 Unknown (Tylenol) albuterol sulfate 90 mcg/actuation 1 inh INHALATION QID PRN 01/20/22 01/20/22 Unknown aerosol inhaler baclofen 10 mg tablet 10 mg PO BID 01/20/22 01/20/22 Unknown celecoxib 200 mg capsule (Celebrex) 200 mg PO QAM 01/20/22 01/20/22 Unknown dicyclomine 10 mg capsule 10 mg PO TID PRN 01/20/22 01/20/22 Unknown fiber 1 - 2 tab PO BID 01/20/22 01/20/22 Unknown fluticasone 250 mcg-salmeterol 50 1 inh INHALATION BID 01/20/22 01/20/22 Unknown mcg/dose blistr powdr for inhalation (Advair Diskus) gabapentin 300 mg capsule 300 mg PO HS 01/20/22 01/20/22 Unknown hydrochlorothiazide 25 mg tablet 25 mg PO QAM 01/20/22 01/20/22 Unknown hydroxychloroquine 200 mg tablet 200 mg PO QPM 01/20/22 01/20/22 Unknown (Plaquenil) ibuprofen 200 mg tablet (Advil) 200 mg PO Q6H PRN 01/20/22 01/20/22 Unknown levothyroxine 125 mcg tablet 125 mcg PO QAM 01/20/22 01/20/22 Unknown lorazepam 1 mg tablet 1 mg PO DAILY PRN 01/20/22 01/20/22 Unknown magnesium oxide 400 mg PO BID 01/20/22 01/20/22 Unknown metformin 500 mg tablet,extended 1,000 mg PO QPM 01/20/22 01/20/22 Unknown release 24 hr montelukast 10 mg tablet 10 mg PO HS 01/20/22 01/20/22 Unknown (Singulair) multivitamin 1 tab PO QAM 01/20/22 01/20/22 Unknown omeprazole 20 mg tablet,delayed 20 mg PO QAM 01/20/22 01/20/22 Unknown release pitavastatin calcium 1 mg tablet 1 mg PO QAM 01/20/22 01/20/22 Unknown (Livalo) potassium 99 mg tablet 99 mg PO HS 01/20/22 01/20/22 Unknown valsartan 80 mg capsule 80 mg PO QAM 01/20/22 01/20/22 Unknown Colace See Rx Instructions .ROUTE .COMPLEX 01/22/22 01/22/22 Unknown Past Medical History Medical History Asthma LAST USED INHALER 1 MONTH AGO Breathing stable - mild BEVERLY - chronic and stable with exercise Degenerative disc disease Diabetes mellitus, type 2 Glucose stable Disorder of right rotator cuff RT TEAR>HAS HAD SOME INJECTIONS FOR TX- STABLE GERD (gastroesophageal reflux disease) Well controlled and stable Hiatal hernia "SMALL" Hx of migraines Hyperlipidemia Hypertension Hypothyroidism Restless leg syndrome Sjogrens syndrome Sleep apnea USES CPAP "SOMETIMES" Exercise / Class Metabolic Activity II 4-5 Yardwork/Stairs/Walk up hill (one flight of stairs - no chest pain or SOB but has to go one leg at a time ) Past Family History Family History Father Family history of diabetes mellitus Grandfather (Paternal) Family hx of colon cancer Other No family history of adverse response to anesthesia Past Surgical History Surgical History H/O partial thyroidectomy BENIGN LESION REMOVED H/O: hysterectomy History of amputation RT FOOT LITTLE TOES History of cardiac cath NO STENTS *3 YEARS AGO History of carpal tunnel release RT/LEFT History of cataract surgery RT/LEFT History of cholecystectomy History of colonoscopy History of esophagogastroduodenoscopy (EGD) History of Jyoti fundoplication History of total hip arthroplasty RT History of total knee replacement LEFT Hx of appendectomy Hx of foot surgery RT/LEFT TOES AND BUNION CORRECTION Past Anesthesia History No Hx of Anesthesia Complications and No Family Hx of Anesthesia Complications History of PONV No Hx of PONV and No Hx of Motion Sickness Social History Smoking Status: Never smoker Hx Alcohol Use: Yes Alcohol type: beer alcohol intake frequency: a few times a month substance use type: does not use Review of Systems Chronic mild cough- ongoing x years - has had full work up- no issues- mild reflux Patient denies chest pain, shortness of breath at rest, wheezing, palpitations. No hx of seizures, stroke, CA No hx of blood clots or blood transfusions Physical Exam Vital Signs VITALS BP 123/93 P 59 TEMP 98.5 SP02 98% RESP 16 Constitutional no acute distress ENMT Mouth: no TMJ clicking Thyromental Distance: > or= 3.5 Finger Breadths (3.5) Mallampati Class: I Neck + thick neck and + limited neck extension (mild ) Respiratory normal respiratory effort; no respiratory distress Auscultation: lungs clear to auscultation bilaterally; no wheezes Cardiovascular Rate/Rhythm: regular rate and regular rhythm Heart Sounds: no murmur Vessels: no carotid bruit Musculoskeletal Spine: no pain with cervical ROM Extremities: extremities normal to inspection Psychiatric Orientation: alert Lab Results Anesthesia Preop Results Results Anesthesia Widget: WBC 8.50 K/uL (4.8-10.8) 01/22/22 Hgb 12.8 g/dL (12.0-16.0) 01/22/22 Hct 39.4 % (37-47) 01/22/22 Plt 279 K/uL (130-400) 01/22/22 Na 133 mmol/L (136-145) L 01/22/22 K 4.9 mmol/L (3.5-5.1) 01/22/22 Cl 99 mmol/L (98-107) 01/22/22 CO2 27 mmol/L (21-32) 01/22/22 BUN 19 mg/dl (6-23) 01/22/22 Creat 0.98 mg/dl (0.6-1.2) 01/22/22 Glucose Level 109 mg/dl (70-99(Fasting)) H 01/22/22 PT 10.6 Seconds (9.0-12.0) 01/22/22 PTT 28.6 Seconds (21.0-31.0) 01/22/22 INR 1.0 (0.9-1.1) 01/22/22 HA1c 6.6 % (4.5-5.6) H 01/22/22 Blood Type A Positive 01/22/22 Antibody Screen NEGATIVE 01/22/22 Testing Electrocardiogram Date: 01/22/22 Bradycardia with first-degree AV block at 57 bpm Low voltage QRS Nondiagnostic inferior Q waves When compared to EKG from February 11, 2018no significant change was found per cardio Chest X-Ray Date: 01/22/22 FINDINGS: A few small bibasilar linear densities consistent with subsegmental at electasis or scarring. Otherwise, lungs are clear. There are low lung volumes with mild elevation of the right hemidiaphragm. Prior cholecystectomy. Mild dextroscoliosis of the thoracolumbar spine. The heart is borderline enlarged. Moderate to severe anterior wedge-shaped compression deformity at T12. This is technically age indeterminate but likely chronic. IMPRESSION: 1. No acute process within the chest. 2. Borderline cardiomegaly. 3. Low lung volumes. Echocardiogram Date: 11/15/19 EF: 55-60% LV Function: normal Other Findings: no LVH Valvular Disease: + no significant valvular disease Septal motion is consistent with intraventricular conduction delay. LA appears enlarged. Stress Test Date: 09/14/18 Type: nuclear Cardio perfusion imaging is done at rest and after pharmaceutical stress is equivocal. Moderate anterior ischemia versus variable breast attenuation artifact No evidence for myocardial infarction EF was normal at 71%. Wall motion is normal. Conclusion: Lexiscan Cardiolite is equivocal and suggest moderate anterior ischemia versus variable breast attenuation artifact (Per patient- evaluated by cardio afterwards and did not feel additional work up needed- will attempt to get documentation)
--- NOTE | 2022-02-14 11:05 | History and Physical Report ---
DATE OF ADMISSION: 02/20/2022. CHIEF COMPLAINT: Right knee pain and discomfort. HISTORY OF PRESENT ILLNESS: The patient is a 71-year-old female well known to me from a previous lef t knee replacement done about 4 years ago. She has continued to be bothered by right knee pain that has gradually gotten worse over time. She has been through extensive conservative treatment, which h as become less successful over time. She describes global pain. The more she is up on it, the more it hurts. She limps more as the day goes on. She has nighttime pain. She would like to have her ri ght knee replaced. PAST MEDICAL HISTORY: Significant for: 1. Sjogren's disease. 2. Hypertension. 3. Diabetes x5 years. 4. Gastroesophageal reflux disease. 5. Hiatal hernia. 6. Hypothyroidism. 7. Sleep apnea. 8. Obesity with a BMI of 37. PAST SURGICAL HISTORY: Includes: 1. Right total hip replacement done 2008. 2. Left knee replacement done on 03/04/2018. 3. Carpal tunnel release. 4. Cataract surgery. 5. Cholecystectomy. 6. Appendectomy. 7. Foot surgery. 8. Thyroid resection. 9. Hysterectomy. ALLERGIES: DEMEROL. CURRENT MEDICATIONS: Includes: 1. Tylenol. 2. Albuterol. 3. Aspirin. 4. Celebrex. 5. Fluticasone. 6. Advair Diskus. 7. Hydrochlorothiazide. 8. Levothyroxine. 9. Lisinopril. 10. Lorazepam. 11. Magnesium oxide. 12. Metformin. 13. Montelukast. 14. Multivitamin. 15. Zofran. 16. Livalo. 17. Potassium. 18. Probiotic. 19. Zantac. SOCIAL HISTORY: A 71-year-old female. Lives by herself. Does not smoke. FAMILY HISTORY: Noncontributory. REVIEW OF SYSTEMS: Significant for diabetes. Her A1c is pretty well controlled at 6.6. No chest pa in or shortness of breath. No history of DVT or PE. She does have sleep apnea, but does not really use her CPAP much. PHYSICAL EXAMINATION: GENERAL: Shows a pleasant middle-aged female. Looks to be in reasonably good health. HEENT: Benign. NECK: Supple. No lymphadenopathy. LUNGS: Clear to auscultation. HEART: Has a regular rate and rhythm. ABDOMEN: Soft, nontender, nondistended. EXTREMITIES: Grossly neurovascularly intact except as follows. Examination of the right knee reveals marked large soft tissue envelope. She has got slight valgus a lignment to her knee. Small knee effusion. She is tender mostly laterally. Range of motion is near full extension to 120 degrees of flexion. There is no instability. No pain with hip motion. Examination of the left knee reveals a well-healed incision. Good straight leg raise. She has got a natomic alignment. Range of motion is 0 to 120. X-RAYS: X-rays of the right knee reviewed. It shows advanced right knee degenerative joint disease. She has got a fairly advanced lateral and patellofemoral compartment disease. She has got osteophy emilia laterally. She has got near complete loss of joint space. Some mild osteopenia. The left knee replacement looks to be in good position without signs of problems. ASSESSMENT: A 71-year-old white female with multiple medical comorbidities including obesity, Sjogre n's disease, hypertension, diabetes, gastroesophageal reflux disease, hiatal hernia, hypothyroidism a nd sleep apnea with advanced right knee degenerative joint disease. She has failed conservative nita ures. She would like to have her right knee replaced. Her left knee is doing pretty well. PLAN: We are going to proceed with a right knee replacement. The risks and benefits of this procedu re were explained to the patient and include but not limited to DVT, PE, , infection, neurologic al injury, vascular injury, bleeding problem, pain, limited range of motion, stiffness, failure to re lieve her symptoms, incomplete relief of symptoms, etc. The patient understands and desires to proce ed. Informed consent was obtained. We did talk about holding her lisinopril, and metformin on the morning of surgery. She is hoping to be discharged to a rehab or [facility] facility as she lives by herself. She will follow back i n our clinic about 2 weeks postop. Job ID: [id number]
[~2022-02-20 08:23] MED LIST changes: -ACET-1256 PO; -AGILEASE PO; -ATV5X PO; +BUPIVACAINE 0.5 % 5 MG/1 ML PF 10ML VIAL ONE; -BUPIVACAINE LIPOSOME 266 MG, BUPIVACAINE/EPINEPHRINE INJ 50 ML, SODIUM CHLORIDE 0.9% PF... INFIL SCH; +BUPIVACAINE LIPOSOME/PF 266 MG, BUPIVACAINE/EPINEPHRINE 50 ML, SODIUM CHLORIDE 0.9% 30 ... INFIL SCH; -CEFAZOLIN 2000MG IV PUSH 15 ML IV SCH; -CHOL20007 PO; -CLB200 PO; -CYCL0.052 OP; -DULA1INJ INJ; -FENTANYL CITRATE INJ 50 MCG/1 ML 2 ML VIAL ONE; -HYDR-3419 PO; -HYDR25TA5 PO; -LACTATED RINGER'S 1000ML IV SCH; -LEVO125T5 PO; -LIDOCAINE HCL 2% 2 ML VIAL (20MG/ML) ONE; -LISI-725 PO; +LR 500ML BOLUS, THEN 15ML/HR IV SCH; +LR 60ML/HR IV SCH; -MAGN400T6 PO; -METF500T5 PO; -METOCLOPRAMIDE HCL 10 MG TAB PO SCH; -MIDAZOLAM HCL 1 MG/ML 2ML VIAL ONE; -MISCCAP80 PO; -MULT-506 PO; -ONDA4TAB9 PO; -PLQ200 PO; -POTA99TA PO; -PROPOFOL IV EMULSION 10 MG/ML 20 ML VIAL ONE; -RANI150T85 PO; +ROPIVACAINE 0.5% 5 MG/ML 30 ML VIAL ONE; -SCOPOLAMINE 1.5 MG TDSY TD SCH; -SNG10 PO; +Scopolamine 1 MG TDSY TD SCH; +TRANEXAMIC ACID 1,000 MG **IV Intra-op IV SCH; -TRANEXAMIC ACID INJ 1,000 MG x 1 Bag Intra-Op IV SCH; -VNTHFA/IN INH; -[UNRECOGNIZED DRUG - CODE] PO; +ceFAZolin 2000MG 2,000 MG/15 ML SYR IV SCH
--- NOTE | 2022-02-20 09:00 | History & Physical Bridge Note ---
Date of Service February 20, 2022 History & Physical Bridge Note I have examined the patient, reviewed the History & Physical and in the interval since the performance of the History & Physical I have noted the following changes of clinical significance: no changes noted
[2022-02-20] MEDS ORDERED: PROPOFOL IV EMULSION 10 MG/ML 20 ML VIAL IV ONE (09:16)
[2022-02-20] MEDS ORDERED: MIDAZOLAM HCL 1 MG/ML 2ML VIAL ONE (09:16)
[2022-02-20] MEDS ORDERED: BUPIVACAINE LIPOSOME 1.3% 266 MG/20 ML VIAL ONE (11:24)
[2022-02-20] MEDS ORDERED: BUPIVACAINE/EPINEPHRINE 0.25% 1:200,000 30 ML VIAL ONE (11:24)
[2022-02-20] MEDS ORDERED: SODIUM CHLORIDE 0.9% PF 50 ML VIAL ONE (11:24)
[2022-02-20] MEDS ORDERED: ONDANSETRON INJ 2 MG/ML 2 ML VIAL IV PRN ×2 (11:47→16:41)
[2022-02-20] MEDS ORDERED: PROMETHAZINE HCL 12.5 MG in SODIUM CHLORIDE 0.9% 50 ML IV PRN (11:47)
[2022-02-20] MEDS ORDERED: MEPERIDINE HCL 25 MG/ML CARP/VIAL IV PRN (11:47)
[2022-02-20] MEDS ORDERED: ePHEDrine sulfate 50 MG/ML AMP IV PRN (11:47)
[2022-02-20] MEDS ORDERED: ATROPINE SULFATE 0.1 MG/ML 10ML SYR IV PRN (11:47)
[2022-02-20] MEDS ORDERED: LIDOCAINE 2% 2 ML VIAL/AMP(20MG/ML) INFIL ONE (12:43)
--- NOTE | 2022-02-20 13:48 | Operative Report ---
PG Post Operative Report Pre & Post Diagnosis Operation Date: 02/20/22 10:40 Pre-Op Diagnosis: Right Knee Advanced Degenerative Joint Disease Post-Op Diagnosis: Right Knee Advanced Degenerative Joint Disease I identified the patient and participated in the time-out.: Yes Procedure Operation Date: 02/20/22 10:40 Actual Procedures p Right Total Knee Arthroplasty(Right) - Ajay Keating MD Surgeon Ajay Keating MD Solution Make Up Operator Russell Tariq PA-C Estimated Blood Loss 50 Findings Consistent with Post-Op Diagnosis Operative findings revealed advanced right knee tricompartment DJD. She had extensive grade 4 changes in the lateral and patellofemoral compartments with some grade 4 changes even medially. There was an erosive appearance to her knee with inflammation and erosive changes to the distal femur. Moderate-sized joint effusion. Specimens Right knee sent for pathology. Anesthesia Type Spinal MAC Complications none Disposition Accompanied Patient To Recovery: No Indications Patient is 71-year-old female whose had a long history of multiple joint problems. She had several joint replaced in the past. She has become more debilitated by right knee pain and discomfort. Is been through extensive conservative treatment which became less successful over time. X-rays show advanced lateral and patellofemoral compartment arthritis. She elected to see with total knee arthroplasty. Description of Procedure Operative implants consist of: 1 Biomet Vanguard size 60 right posterior stabilized femoral component. 2. Biomet size 67 tibial tray. 3. 12 mm posterior stabilized polyethylene insert. 4. 31 x 8 all polypatella. The patient was taken the operating, identified, placed on the operating table supine position. All contact areas were properly padded. IV antibiotics tried by anesthesia team. A spinal anesthetic and abductor canal block had provided holding area. Melgar cath was placed in sterile fashion. Right thigh turn was then placed in the right lower extremities and prepped and draped in usual sterile fashion. The right leg was elevated exsanguinated with use of an Esmarch in terms playset 300 mmHg. An anterior approach of the right knee was then performed to longitudinal incision centered over the patella. Sharp dissection was carried through subcutaneous tissues to the extensor mechanism. A medial parapatellar arthrotomy incision was made. Some subperiosteal dissection was carried out medially. The fat pad was resected from each patella tendon. The lateral patellofemoral ligament was released. Patella subluxated laterally and the knee was flexed. The osteophytes were taken off distal femur. The ACL and PCL were then released from distal femur the tibia subluxated anteriorly. The external tibial alignment jig was placed in the interface the tibia and adjusted 12 mm medially. Proximal tibial cut was made remove about 3 to 4 mm of bone from the medial side. The tibia was sized to a size 67. I tried to maximize coverage due to her osteoporotic bone. Attention drawn the femur. The distal femur stem with a sharp drop with intramedullary canal was suction. A right 5 degree valgus cutting guide was placed for the distal femoral cutting block was pinned in place. Distal femoral cut was made to take an additional 3 mm bone off distal femur. The knee was brought out into full extension. I did just a slight pie crusting of the lateral IT band equalize extension gap. Knee was flexed. The femur was then sized to a size 16. The AP cutting block was pinned parallel to the epicondylar axis which was 3 degrees of external rotation. The anterior cut, anterior chamfer, posterior cut, posterior chamfer cuts were made. The box cutting guide was placed in just slight lateral box cut was made. The knee was flexed. The remnants of the medial and lateral menisci were excised. The osteophytes taken off the posterior aspect of femur. Trial femoral component was placed. Of note I did release the popliteus tendon in order to equalize the flexion gap. The tibia subluxated anteriorly. The tibial tray was pinned in maximum external rotation. The drill and stem punch were used to create defect in proximal tibia for the tibial tray. Knee was then trialed and the 12 mm insert fit most appropriately. Attention drawn the patella. Patella was cleaned of all soft tissues. Patella was quite worn and the thickness measured about 17 mm. I cut this down to 12. Was sized to a size 31 patella. The lug holes were drilled for 31 patella. The lateral aspect is moved. Patella button was placed. Knee was taken through range of motion patella tracked nicely with no thumbs test. Attention drawn to placing permanent components. All trial components were removed. Bone plug was placed in the distal femur limit blood loss. Double batch Palacos G cement was mixed. A Biomet Vanguard size 60 right posterior stabilized femoral component, a size 67 tibial tray, 12 mm posterior stabilized polyethylene insert, and a 31 x 8 all polypatella then cemented in place. The knee was brought out into full extension total cement hardened. Final cement check was then performed. The pericapsular tissues were injected with total of 100 cc of combination of 20 cc of Exparel, 30 cc normal saline, 50 cc of quarter percent Marcaine with epinephrine. Patient did receive 1 g tranexamic acid. The tendon was then let down for final turn time 53 minutes. Hemostasis assured use electrocautery. Extensor mechanism closed with combination 1 PDS suture #1 Vicryl suture in [id number] fashion. Extensor mechanism checked found to be intact with subcutaneous tissue then closed with 2 Dexon suture in a buried interrupted fashion. Skin was closed skin raymon. Leg was then cleaned and dried a sterile dressing was Xeroform, 4 fours, sterile cast padding, Michael bandage were applied. Patient then transferred to the recovery room in stable condition. Patient tolerated procedure well and there were no complications. Russell Tariq, my physician learning and development assistant, was present for the entire procedure. His assistance was essential and required for appropriate patient positioning, prepping and draping, surgical exposure, performing the technical details of the operation, placement the implants, closure of the wound, and placement of the sterile bandage. I attest to the content of the Intraoperative Record and any orders documented therein. Any exceptions are noted below.
--- NOTE | 2022-02-20 14:12 | Anesthesiology Progress Note ---
Date of Service February 20, 2022 Anesthesia Post Procedure Vital Signs Vital Signs: Temp Pulse Resp BP Pulse Ox 02/20/22 14:00 36.5 C 68 16 120/67 98 02/20/22 13:50 63 18 134/62 98 02/20/22 13:40 79 18 132/62 100 02/20/22 13:31 36.6 C 85 18 128/58 L 100 02/20/22 09:39 37.1 C 63 20 132/65 97 Pain Intensity Right Knee: Pain Intensity: 7 Transfer of Care Handoff Completed per policy Notes Mental Status: alert / awake / arousable and participated in evaluation Patient Amnestic to Procedure: Yes Nausea / Vomiting: adequately controlled Pain: adequately controlled Airway Patency, RR, SpO2: stable & adequate BP & HR: stable & adequate Hydration State: stable & adequate Anesthetic Complications: no major complications apparent
--- NOTE | 2022-02-20 14:39 | XRay Report ---
XR knee RT 1 or 2V routine CLINICAL HISTORY: Postoperative evaluation. COMPARISON: Knee radiographs November 03, 2021. FINDINGS: Alignment of the total right knee arthroplasty is anatomic. No periprosthetic fracture is present. No unexpected radiopaque foreign bodies are present. There are skin raymon. IMPRESSION: Expected findings following total right knee arthroplasty. ACT 112: Negative or not required by law. Electronically signed by: Morales Cheema M.D. 02/20/2022 2:38 PM
[2022-02-20] MEDS ORDERED: HYDROmorphone INJ 0.5 MG/0.5 ML SYR IV PRN (16:41)
[2022-02-20] MEDS ORDERED: LORazepam 1 MG TAB PO PRN (16:41)
[2022-02-20] MEDS ORDERED: ALBUTEROL HFA 8 GM INHALER INH PRN (16:41)
[2022-02-20] MEDS ORDERED: NALOXONE HCL 0.4 MG/1 ML VIAL/CARP IV PRN (16:41)
[2022-02-20] MEDS ORDERED: DICYCLOMINE HCL 10 MG CAP PO PRN (16:41)
[2022-02-20] MEDS ORDERED: PHARMACY GLYCEMIC MGMT CONSULT PRN (16:41)
[2022-02-20] MEDS ORDERED: bisacodyL 10 MG SUPP PR PRN (16:41)
[2022-02-20] MEDS ORDERED: GLUCOSE 10 TABS/TUBE PO PRN (16:41)
[2022-02-20] MEDS ORDERED: METOCLOPRAMIDE HCL INJ 5 MG/ML 2 ML VIAL IV PRN (16:41)
[2022-02-20] MEDS ORDERED: MAGNESIUM HYDROXIDE SUSP 30 ML UDC PO PRN (16:41)
[2022-02-20] MEDS ORDERED: DEXTROSE 50% 50 ML SYRINGE IV PRN (16:41)
[2022-02-20] MEDS ORDERED: DOCUSATE SCH (16:41)
[2022-02-20] MEDS ORDERED: ALUMINUM/MAGNESIUM SUSP 30 ML UDC PO PRN (16:41)
[2022-02-20] MEDS ORDERED: GLUCAGON FOR INJ 1 MG VIAL SQ PRN (16:41)
[2022-02-20] MEDS ORDERED: CARBOHYDRATES FOR HYPOGLYCEMIA PO PRN (16:41)
[2022-02-20] MEDS ORDERED: GLUCOSE 40% GEL 15 GM TUBE PO PRN (16:41)
[2022-02-20] MEDS: SODIUM CHLORIDE 0.9% 1000ML 1,000 ML IV SCH (17:17)
[2022-02-20] MEDS: Scopolamine CHECK PATCH PLACEMENT SCH ×2 (17:19→23:57)
[2022-02-20] MEDS: INSULIN ASPART PER UNIT SC SCH (18:12)
[2022-02-20] MEDS: KETOROLAC TROMETHAMINE 15 MG/ML VIAL IV SCH ×2 (18:15→23:57)
[2022-02-20] MEDS: ACETAMINOPHEN 500 MG TAB PO SCH ×2 (18:18→23:57)
[2022-02-20] MEDS: ASCORBIC ACID 500 MG TAB PO SCH (18:26)
[2022-02-20] MEDS ORDERED: TRANEXAMIC ACID / 0.7% NACL 1,000 MG/100 ML BAG IV SCH (19:30)
[2022-02-20] MEDS ORDERED: HYDROXYCHLOROQUINE SULFATE 200 MG TAB PO SCH (21:00)
[2022-02-20] MEDS ORDERED: NON-FORMULARY MEDICATION (Potassium 99 mg Tablet) PO SCH (21:00)
[2022-02-20] MEDS ORDERED: GABAPENTIN 300 MG CAP PO SCH (21:00)
[2022-02-20] MEDS ORDERED: SENNA 8.6 MG TAB PO SCH (21:00)
[2022-02-20] MEDS ORDERED: MONTELUKAST SODIUM 10 MG TABLET PO SCH (21:00)
[2022-02-20] MEDS: ceFAZolin 2000MG 2,000 MG/15 ML SYR IV SCH (21:05)
[2022-02-20] MEDS: BACLOFEN 10 MG TAB PO SCH (21:17)
[2022-02-20] MEDS: DOCUSATE SODIUM 100 MG CAP PO SCH (21:17)
[2022-02-20] MEDS: MAGNESIUM OXIDE 400 MG TAB PO SCH (21:18)
[2022-02-20] MEDS: CALCIUM POLYCARBOPHIL 625MG TAB PO SCH (21:19)
[2022-02-20] MEDS: ASPIRIN 81 MG ECTAB PO SCH (21:19)
[2022-02-20] MEDS: oxyCODONE HCL IR 5 MG TAB (IMMEDIATE RELEASE) PO PRN (21:28)
[2022-02-21] MEDS: INSULIN ASPART PER UNIT SC SCH ×3 (00:02→13:29)
[2022-02-21] MEDS: ceFAZolin 2000MG 2,000 MG/15 ML SYR IV SCH (03:41)
[2022-02-21] MEDS: SODIUM CHLORIDE 0.9% 1000ML 1,000 ML IV SCH (04:18)
[2022-02-21] MEDS: KETOROLAC TROMETHAMINE 15 MG/ML VIAL IV SCH ×2 (05:43→13:22)
[2022-02-21] MEDS ORDERED: LEVOTHYROXINE SODIUM 125 MCG TABLET PO SCH (06:30)
[2022-02-21 06:42] LABS: Hematocrit (blood only) 29.3 % (37-47); Hemoglobin 9.7 g/dL (12.0-16.0); Mean Corpuscular Hemoglobin 29.2 pg (25-34); Mean Corpuscular Hgb Conc 33.1 g/dL (32-36); Mean Corpuscular Volume 88.3 fL (80-100); Mean Platelet Volume 8.8 fL (7.4-10.4); Platelet Count 185 K/uL (130-400); RDW Coefficient of Variation 14.1 % (11.5-14.5); RDW Standard Deviation 45.8 fL (36.4-46.3); Red Blood Count 3.32 M/uL (4.2-5.4); White Blood Count 6.74 K/uL (4.8-10.8)
[2022-02-21 06:59] LABS: BUN Creatinine Ratio 17.9 (10-20); Calcium 8.3 mg/dl (8.5-10.1); Est GFR (African American) 82.2 ml/min; Est GFR (Non-African American) 70.9 ml/min
[2022-02-21] MEDS: oxyCODONE HCL IR 5 MG TAB (IMMEDIATE RELEASE) PO PRN (08:51)
[2022-02-21] MEDS: ASCORBIC ACID 500 MG TAB PO SCH (08:52)
[2022-02-21] MEDS: DOCUSATE SODIUM 100 MG CAP PO SCH (08:53)
[2022-02-21] MEDS: ASPIRIN 81 MG ECTAB PO SCH (08:53)
[2022-02-21] MEDS: MAGNESIUM OXIDE 400 MG TAB PO SCH (08:55)
--- NOTE | 2022-02-21 08:55 | Progress Notes ---
DATE OF SERVICE: 02/21/2022. SUBJECTIVE: A 71-year-old white female postoperative day 1 from right knee replacement. She is doin g quite well. Pain is controlled. Had a pretty good night. No chest pain or shortness of breath. Not feeling dizzy or lightheaded. OBJECTIVE: VITAL SIGNS: Temperature 36.9. Vital signs are stable. GENERAL: Shows a pleasant middle-aged female. She is sitting up in bed this morning looks pretty co mfortable. LUNGS: Clear to auscultation. HEART: Regular rate and rhythm. ABDOMEN: Soft, nontender, nondistended. EXTREMITIES: Grossly neurovascularly intact except as follows. Examination of the right leg reveals the dressing to be clean, dry and intact. Leg is well aligned. She can do a straight leg raise, but it takes quite a bit of effort. She can dorsiflex and plantarf lori her foot appropriately. She is neurologically intact. LABORATORY DATA: Hemoglobin 9.7. Hematocrit 29.3. Electrolytes are stable. ASSESSMENT: A 71-year-old white female postoperative day 1 from a right knee replacement, doing reas onably well. Pain is controlled. She is neurologically intact. PLAN: 1. DVT prophylaxis includes thigh-high TEDs, SCDs, and aspirin twice a day. 2. PT/OT. Weight bear as tolerated. Right total knee protocol. 3. Pain control, doing well with current pain regimen. 4. Disposition: She is hoping to go to [facility] for a brief rehab stay. She lives by herself. We will see how her insurance coverage proceeds in social welfare administrator, but she is okay to go to a rehab an y time, arrangements can be made and accepted. Job ID: [id number]
[2022-02-21] MEDS: BACLOFEN 10 MG TAB PO SCH (08:56)
[2022-02-21] MEDS: CALCIUM POLYCARBOPHIL 625MG TAB PO SCH (08:56)
[2022-02-21] MEDS ORDERED: DOCUSATE SODIUM/SENNA 50/8.6MG TAB PO SCH (09:00)
[2022-02-21] MEDS ORDERED: VALSARTAN 80 MG TAB PO SCH (09:00)
[2022-02-21] MEDS ORDERED: hydroCHLOROthiazide 25 MG TAB PO SCH (09:00)
[2022-02-21] MEDS ORDERED: ADVANCED PROBIOTIC 1250 MG CAPSULE PO SCH (09:00)
[2022-02-21] MEDS ORDERED: FLUTICASONE/VILANTEROL 200/25MCG 14 PUFFS/INHALER INH SCH (09:00)
[2022-02-21] MEDS ORDERED: PANTOprazole 40 MG TAB PO SCH (09:00)
[2022-02-21] MEDS ORDERED: NON-FORMULARY MEDICATION (Multivitamin Tablet) PO SCH (09:00)
[2022-02-21] MEDS ORDERED: MULTIVITAMIN TAB PO SCH (09:00)
[2022-02-21] MEDS: Scopolamine CHECK PATCH PLACEMENT SCH (13:23)
--- NOTE | 2022-02-26 13:12 | Discharge Summary ---
Date of Service February 26, 2022 Discharge Data Procedures Performed Operation Date: 02/20/22 10:40 Actual Procedures p Right Total Knee Arthroplasty(Right) - Ajay Keating MD Hospital Course (1) Status post total right knee replacement: This patient is a 71 year old female admitted on 02/20/22 and underwent total knee arthroplasty. She tolerated the procedure well and there were no complications. Transferred to the PACU post op and later to the orthopedic floor for further care. She was given ancef for antibiotic prophylaxis. She was also given GOPI stockings, SCDs, and aspirin for DVT prophylaxis. Hemoglobin, hematocrit, and vital signs were monitored during her hospital stay and remained stable. Did not require any blood transfusions. There were no complications during her hospital stay. By post op day #1 the patient was tolerating a diabetic diet, pain was reasonably controlled with oral pain medicine, and she was participating in physical therapy. On post op day #1 the patient was discharged to rehab facility. She was given printed discharge instructions including prescriptions for extra strength tylenol, aspirin, toradol, zofran, and oxycodone. Continue p hysical therapy, weight bearing as tolerated. Continue GOPI stockings. Follow up approximately 2 weeks post op or sooner if there are problems or concerns. Coding Level of Care Code None Diagnoses Status post total right knee replacement Z96.651
== END 2022-02-21 15:00 ==
LOC: PACUINP 08:23 → ASU 08:23 → 3W 16:46

== ENCOUNTER 2024-07-10 08:57 | Observation (INO) ==
--- NOTE | 2024-06-02 13:04 | PAT Medication Instructions ---
Medication Instructions Date of Service June 02, 2024 Home Medications Lactobacillus acidophilus 10 billion cell capsule (Probiotic) 10,000 mmu cells PO QAM albuterol sulfate 90 mcg/actuation aerosol inhaler 1 inh inhalation QID PRN sob baclofen 10 mg tablet 10 mg PO BID dicyclomine 10 mg capsule 10 mg PO TID PRN Abdominal Pain fiber 1 - 2 tab PO BID fluticasone 250 mcg-salmeterol 50 mcg/dose blistr powdr for inhalation (Advair Diskus) 1 inh inhalation BID gabapentin 300 mg capsule 300 mg PO HS hydroxychloroquine 200 mg tablet (Plaquenil) 200 mg PO QPM levothyroxine 125 mcg tablet 125 mcg PO QAM lorazepam 1 mg tablet 1 mg PO DAILY PRN Anxiety magnesium oxide 400 mg PO BID metformin 500 mg tablet,extended release 24 hr 1,000 mg PO QPM montelukast 10 mg tablet (Singulair) 10 mg PO HS multivitamin 1 tab PO QAM omeprazole 20 mg tablet,delayed release 20 mg PO QAM PRN Indigestion/heartburn potassium 99 mg tablet 99 mg PO HS acetaminophen 500 mg capsule 1,000 mg PO TID PRN Pain benralizumab 30 mg/mL subcutaneous auto-injector (Fasenra Pen) 30 mg subcut Q60D cholecalciferol (vitamin D3) 125 mcg (5,000 unit) tablet (Vitamin D3) 125 mcg PO QAM coenzyme Q10 100 mg capsule (CoQ-10) 100 mg PO Q2D docusate sodium 100 mg capsule (Colace) 100 mg PO QAM duloxetine 30 mg capsule,delayed release 30 mg PO QAM ezetimibe 10 mg tablet (Zetia) 10 mg PO QAM metformin 500 mg tablet 500 mg PO QAM semaglutide 0.25 mg or 0.5 mg (2 mg/3 mL) subcutaneous pen injector (Ozempic) 0.5 mg subcut WK valsartan 160 mg-hydrochlorothiazide 25 mg tablet 1 tab PO QAM ASK your prescriber and surgeon hydroxychloroquine 200 mg tablet (Plaquenil) 200 mg PO QPM benralizumab 30 mg/mL subcutaneous auto-injector (Fasenra Pen) 30 mg subcut Q60D STOP 7 days prior to surgery semaglutide 0.25 mg or 0.5 mg (2 mg/3 mL) subcutaneous pen injector (Ozempic) 0.5 mg subcut WK STOP taking 2 weeks before surgery (or as soon as possible if surgery is within 2 weeks) coenzyme Q10 100 mg capsule (CoQ-10) 100 mg PO Q2D DO NOT take the morning of surgery Lactobacillus acidophilus 10 billion cell capsule (Probiotic) 10,000 mmu cells PO QAM dicyclomine 10 mg capsule 10 mg PO TID PRN Abdominal Pain fiber 1 - 2 tab PO BID magnesium oxide 400 mg PO BID multivitamin 1 tab PO QAM cholecalciferol (vitamin D3) 125 mcg (5,000 unit) tablet (Vitamin D3) 125 mcg PO QAM docusate sodium 100 mg capsule (Colace) 100 mg PO QAM metformin 500 mg tablet 500 mg PO QAM valsartan 160 mg-hydrochlorothiazide 25 mg tablet 1 tab PO QAM Take morning of surgery With a small sip of water, OTHERWISE NOTHING TO EAT OR DRINK AFTER MIDNIGHT: albuterol sulfate 90 mcg/actuation aerosol inhaler 1 inh inhalation QID PRN sob (use if needed; please bring rescue inhaler with you to hospital day of surgery if possible) baclofen 10 mg tablet 10 mg PO BID fluticasone 250 mcg-salmeterol 50 mcg/dose blistr powdr for inhalation (Advair Diskus) 1 inh inhalation BID levothyroxine 125 mcg tablet 125 mcg PO QAM lorazepam 1 mg tablet 1 mg PO DAILY PRN Anxiety (if needed) omeprazole 20 mg tablet,delayed release 20 mg PO QAM PRN Indigestion/heartburn (if needed) acetaminophen 500 mg capsule 1,000 mg PO TID PRN Pain (if needed) duloxetine 30 mg capsule,delayed release 30 mg PO QAM ezetimibe 10 mg tablet (Zetia) 10 mg PO QAM Take evening before surgery albuterol sulfate 90 mcg/actuation aerosol inhaler 1 inh inhalation QID PRN sob (if needed) baclofen 10 mg tablet 10 mg PO BID dicyclomine 10 mg capsule 10 mg PO TID PRN Abdominal Pain (if needed) fiber 1 - 2 tab PO BID fluticasone 250 mcg-salmeterol 50 mcg/dose blistr powdr for inhalation (Advair Diskus) 1 inh inhalation BID gabapentin 300 mg capsule 300 mg PO HS lorazepam 1 mg tablet 1 mg PO DAILY PRN Anxiety (if needed) magnesium oxide 400 mg PO BID metformin 500 mg tablet,extended release 24 hr 1,000 mg PO QPM montelukast 10 mg tablet (Singulair) 10 mg PO HS potassium 99 mg tablet 99 mg PO HS acetaminophen 500 mg capsule 1,000 mg PO TID PRN Pain (if needed) Other Notes If you have any questions please call us at [phone] or [phone] or [phone] or [phone]
--- NOTE | 2024-06-09 10:23 | Anesthesiology Consultation ---
Date of Service June 09, 2024 Assessment & Plan (1) Encounter for pre-operative examination: - awaiting 06/20/24 [facility] - check BSG am DOS. - Patient reports that has recently been having episodes of sudden onset of mouth watering and then vomiting or dry-heaving ongoing over the past several months. She is scheduled with [facility] 06/20/24. Dr. Gibbs advised will await GI office note 06/20/24 and make further determination on surgery at that time. Patient and surgeon's office made aware. - cardiology office visit 09/15/23: "...reports fainting and feeling weak...dyspnea on exertion...reassess lipid panel since discontinuing statin...follow up in 1 year..." This was discussed with Dr. Gibbs who advised if patient reports no additional/recent episodes of syncope and is not feeling weak nothing additional is needed at this time. I contacted patient who states that syncope, sensation of weakness and dyspnea on exertion resolved at least several months ago-denies presyncope. - Outpatient joint pathway: Per surgeon and patient, plan for outpatient joint program. Upon review of chart and per discussion with Dr. Gibbs, patient is not a candidate for Same Day Joint Program from anesthesia perspective. Patient made aware, she denied questions or concerns. Surgeon's office made aware. Chart Review Chart Review: Pending: Refer to Additional Notes / Consult section and Patient seen in Pre Admission Testing Teaching & Discussion Pre-Anesthesia Teaching/Discussion Notes: Instructed NPO after midnight before surgery, except medications with 15 cc of water. Medication instructions provided according to the PAT guidelines. History Surgery Operation Date: 07/10/24 09:15 Proposed Procedures p OP: Right Reverse Total Shoulder Arthroplasty - Jacob Dennis, Height/Weight Height: 5 ft 6 in Weight: 92.3 kg Allergies Allergy/AdvReac Type Severity Reaction Status Date / Time meperidine AdvReac Intermediate N/V Verified 05/31/24 14:09 [id number] Reductase AdvReac Mild Muscle Pain Verified 05/31/24 14:09 Inhibitor Medications Home Medications Medication Instructions Recorded Confirmed Last Taken Lactobacillus acidophilus 10 10,000 mmu cells PO QAM 01/20/22 05/31/24 02/19/22 09:00 billion cell capsule (Probiotic) albuterol sulfate 90 mcg/actuation 1 inh inhalation QID PRN sob 01/20/22 05/31/24 Unknown aerosol inhaler baclofen 10 mg tablet 10 mg PO BID 01/20/22 05/31/24 02/19/22 22:00 dicyclomine 10 mg capsule 10 mg PO TID PRN Abdominal Pain 01/20/22 05/31/24 02/19/22 22:00 fiber 1 - 2 tab PO BID 01/20/22 05/31/24 02/19/22 22:00 fluticasone 250 mcg-salmeterol 50 1 inh inhalation BID 01/20/22 05/31/24 02/19/22 06:00 mcg/dose blistr powdr for inhalation (Advair Diskus) gabapentin 300 mg capsule 300 mg PO HS 01/20/22 05/31/24 02/19/22 22:00 hydroxychloroquine 200 mg tablet 200 mg PO QPM 01/20/22 05/31/24 02/19/22 22:00 (Plaquenil) levothyroxine 125 mcg tablet 125 mcg PO QAM 01/20/22 05/31/24 02/20/22 06:00 lorazepam 1 mg tablet 1 mg PO DAILY PRN Anxiety 01/20/22 05/31/24 02/19/22 06:00 magnesium oxide 400 mg PO BID 01/20/22 05/31/24 02/19/22 22:00 metformin 500 mg tablet,extended 1,000 mg PO QPM 01/20/22 05/31/24 02/19/22 22:00 release 24 hr montelukast 10 mg tablet 10 mg PO HS 01/20/22 05/31/24 02/19/22 22:00 (Singulair) multivitamin 1 tab PO QAM 01/20/22 05/31/24 02/19/22 09:00 omeprazole 20 mg tablet,delayed 20 mg PO QAM PRN 01/20/22 05/31/24 02/20/22 06:00 release Indigestion/heartburn potassium 99 mg tablet 99 mg PO HS 01/20/22 05/31/24 02/19/22 22:00 acetaminophen 500 mg capsule 1,000 mg PO TID PRN Pain 05/31/24 05/31/24 Unknown benralizumab 30 mg/mL subcutaneous 30 mg subcut Q60D 05/31/24 05/31/24 Unknown auto-injector (Fasenra Pen) cholecalciferol (vitamin D3) 125 125 mcg PO QAM 05/31/24 05/31/24 Unknown mcg (5,000 unit) tablet (Vitamin D3) coenzyme Q10 100 mg capsule 100 mg PO Q2D 05/31/24 05/31/24 Unknown (CoQ-10) docusate sodium 100 mg capsule 100 mg PO QAM 05/31/24 05/31/24 Unknown (Colace) duloxetine 30 mg capsule,delayed 30 mg PO QAM 05/31/24 05/31/24 Unknown release ezetimibe 10 mg tablet (Zetia) 10 mg PO QAM 05/31/24 05/31/24 Unknown metformin 500 mg tablet 500 mg PO QAM 05/31/24 05/31/24 Unknown semaglutide 0.25 mg or 0.5 mg (2 0.5 mg subcut WK 05/31/24 05/31/24 05/31/24 mg/3 mL) subcutaneous pen injector (Ozempic) valsartan 160 1 tab PO QAM 05/31/24 05/31/24 Unknown mg-hydrochlorothiazide 25 mg tablet meloxicam 15 mg tablet mg 06/09/24 06/09/24 Unknown Additional Notes: Patient was instructed she cannot use Xyla-melts for the day of surgery. She verbalized understanding and agreement, denied questions or concerns. This was also written on provided medication instructions. Past Medical History Medical History Degenerative disc disease Diabetes mellitus, type 2 NIDDM GERD (gastroesophageal reflux disease) Hiatal hernia "small" Hx of migraines Hx of sepsis r/t UTI and kidney infection. January 2024 and treated inpatient at [facility] Hyperlipidemia Hypertension controlled, stable per pt Hypothyroidism Intrinsic asthma stable and controlled with medication; last albuterol inhaler use several months ago Restless leg syndrome Sjogrens syndrome Sleep apnea uses cpap "sometimes" Patient denies h/o stroke, seizures, heart attack, heart failure, blood claire ts/DVTs or blood transfusions. Exercise / Class Metabolic Activity II 4-5 Yardwork/Stairs/Walk up hill (denies chest discomfort or shortness of breath with one flight of stairs) Past Family History Family History Father Family history of diabetes mellitus Grandfather (Paternal) Family hx of colon cancer Other No family history of adverse response to anesthesia Past Surgical History Surgical History H/O partial thyroidectomy right partial thyroidectomy (benign lesion) H/O radiofrequency ablation (RFA) of nerve of lumbar spine History of amputation right foot little toe History of cardiac cath 2018, no stents at [facility] History of carpal tunnel release bilateral History of cataract surgery bilateral History of cholecystectomy History of colonoscopy History of esophagogastroduodenoscopy (EGD) History of Jyoti fundoplication Hx of appendectomy Hx of foot surgery hammertoes and bunion corrections-feet bilat S/P epidural steroid injection lumbar S/P SRINIVASAN-BSO S/P total knee replacement right/left Status post right hip replacement Past Anesthesia History No Hx of Anesthesia Complications and No Family Hx of Anesthesia Complications History of PONV History of PONV (denies needing scop patch) and Hx of Motion Sickness Social History Smoking Status: Never smoker Do You Dip or Chew Tobacco: No Hx Alcohol Use: Yes Alcohol type: beer alcohol intake frequency: a few times a month Hx Substance Use: No substance use type: does not use Review of Systems Patient denies chest pain, shortness of breath, dyspnea on exertion, fever, chills, cough, wheezing, or palpitations. Physical Exam Vital Signs Vitals BP 132/76 P 63 TEMP 98.5 SP02 98% on RA RESP 18 Physical Patient resting comfortably in chair in no acute distress, alert and oriented, responding appropriately throughout visit Full cervical extension range of motion without pain TMD 3.5 finger breadths Mallampati Score 2 Dentition: several crowns, denies chipped or loose teeth, caps, implants or bridges Lungs: normal respiratory effort. Good air movement, clear throughout to auscultation, no adventitious breath sounds Cardiac: regular rate and rhythm, no murmurs noted Carotid arteries: negative bruit bilat Lab Results Anesthesia Preop Results Results Anesthesia Widget: PT 10.3 Seconds (9.0-12.0) 06/09/24 PTT 28 Seconds (21-31) 06/09/24 INR 0.9 (0.9-1.1) 06/09/24 Blood Type A Positive 06/09/24 Antibody Screen NEGATIVE 06/09/24 Testing Laboratory Results 06/06/24 WBC: 6.5 H/H: 12/ PLATELETS: 277,000 SODIUM: 136 POTASSIUM: 3.9 CHLORIDE: 103 CO2: 27 BUN: 11 CREATININE: 0.9 GLUCOSE: 110 A1c: 5.9% TSH: 1.8 Electrocardiogram Date: 06/09/24 Sinus bradycardia with 1st degree AV block, rate 57 bpm Nondiagnostic inferior waves Chest X-Ray Date: 06/09/24 No active disease in the chest. Echocardiogram Date: 11/15/19 EF 55-60% Septal motion is consistent with intraventricular conduction delay No significant valvular stenosis or regurgitation Stress Test Date: 09/14/18 Moderate anterior ischemia vs variable breast attenuation artifact EF 71% Normal wall motion Cardiac Catheterization Date: 09/22/18 Left main: angiographically normal LAD: mid 20% lesion LCx: no angiographically significant disease RCA: no angiographically significant disease EF 60%
--- NOTE | 2024-07-06 10:23 | History & Physical Report ---
Date of Service July 06, 2024 Assessment & Plan (1) Rotator cuff tear arthropathy of right shoulder: We will proceed with a right reverse shoulder replacement. Postoperatively she will be placed in a sling and kept overnight in the hospital for postop medical management. She plans to go to outpatient physical therapy in [facility] upon discharge. History of Present Illness Chief Complaint: Cuff tear arthropathy of the right shoulder. Primary Care Provider: Diana Woods is a pleasant 73-year-old female who has been dealing with chronic increasing right shoulder pain. She had an MRI 2 years ago, which showed a high-grade partial-thickness cuff tear. She has now some more weakness in her shoulder and trouble with doing activities away from body. I sent her for an MRI. The MRI showed a large retracted rotator cuff tear. After failing conservative treatment, she has elected proceed with a right reverse shoulder arthroplasty. Allergies Allergy/AdvReac Type Severity Reaction Status Date / Time meperidine AdvReac Intermediate N/V Verified 05/31/24 14:09 [id number] Reductase AdvReac Mild Muscle Pain Verified 05/31/24 14:09 Inhibitor Home Medications Medication Instructions Recorded Confirmed Type Lactobacillus acidophilus 10 10,000 mmu cells PO QAM 01/20/22 05/31/24 History billion cell capsule (Probiotic) albuterol sulfate 90 mcg/actuation 1 inh inhalation QID PRN sob 01/20/22 05/31/24 History aerosol inhaler baclofen 10 mg tablet 10 mg PO BID 01/20/22 05/31/24 History dicyclomine 10 mg capsule 10 mg PO TID PRN Abdominal Pain 01/20/22 05/31/24 History fiber 1 - 2 tab PO BID 01/20/22 05/31/24 History fluticasone 250 mcg-salmeterol 50 1 inh inhalation BID 01/20/22 05/31/24 History mcg/dose blistr powdr for inhalation (Advair Diskus) gabapentin 300 mg capsule 300 mg PO HS 01/20/22 05/31/24 History hydroxychloroquine 200 mg tablet 200 mg PO QPM 01/20/22 05/31/24 History (Plaquenil) levothyroxine 125 mcg tablet 125 mcg PO QAM 01/20/22 05/31/24 History lorazepam 1 mg tablet 1 mg PO DAILY PRN Anxiety 01/20/22 05/31/24 History magnesium oxide 400 mg PO BID 01/20/22 05/31/24 History metformin 500 mg tablet,extended 1,000 mg PO QPM 01/20/22 05/31/24 History release 24 hr montelukast 10 mg tablet 10 mg PO HS 01/20/22 05/31/24 History (Singulair) multivitamin 1 tab PO QAM 01/20/22 05/31/24 History omeprazole 20 mg tablet,delayed 20 mg PO QAM PRN 01/20/22 05/31/24 History release Indigestion/heartburn potassium 99 mg tablet 99 mg PO HS 01/20/22 05/31/24 History acetaminophen 500 mg capsule 1,000 mg PO TID PRN Pain 05/31/24 05/31/24 History benralizumab 30 mg/mL subcutaneous 30 mg subcut Q60D 05/31/24 05/31/24 History auto-injector (Fasenra Pen) cholecalciferol (vitamin D3) 125 125 mcg PO QAM 05/31/24 05/31/24 History mcg (5,000 unit) tablet (Vitamin D3) coenzyme Q10 100 mg capsule 100 mg PO Q2D 05/31/24 05/31/24 History (CoQ-10) docusate sodium 100 mg capsule 100 mg PO QAM 05/31/24 05/31/24 History (Colace) duloxetine 30 mg capsule,delayed 30 mg PO QAM 05/31/24 05/31/24 History release ezetimibe 10 mg tablet (Zetia) 10 mg PO QAM 05/31/24 05/31/24 History metformin 500 mg tablet 500 mg PO QAM 05/31/24 05/31/24 History semaglutide 0.25 mg or 0.5 mg (2 0.5 mg subcut WK 05/31/24 05/31/24 History mg/3 mL) subcutaneous pen injector (Ozempic) valsartan 160 1 tab PO QAM 05/31/24 05/31/24 History mg-hydrochlorothiazide 25 mg tablet meloxicam 15 mg tablet mg 06/09/24 06/09/24 History Past Med/Surg History Problem List (Updated 07/06/24 @ 10:22 by Jacob Dennis DO) Rotator cuff tear arthropathy of right shoulder Encounter for pre-operative examination Bursitis of hip, right Status post total right knee replacement History of total knee replacement LEFT History of total hip arthroplasty RT Bilateral rotator cuff dysfunction Disorder of right rotator cuff RT TEAR>HAS HAD SOME INJECTIONS FOR TX- STABLE Pes anserinus bursitis of left knee H/O total knee replacement Trigger finger Degenerative arthritis of toe joint Arthritis of knee, right Medical History Hx of sepsis r/t UTI and kidney infection. January 2024 and treated inpatient at [facility] Intrinsic asthma stable and controlled with medication; last albuterol inhaler use several months ago Sjogrens syndrome Degenerative disc disease Diabetes mellitus, type 2 NIDDM Restless leg syndrome Hx of migraines Hypertension controlled, stable per pt Hyperlipidemia Hiatal hernia "small" GERD (gastroesophageal reflux disease) Hypothyroidism Sleep apnea uses cpap "sometimes" Surgical History Status post right hip replacement S/P total knee replacement right/left S/P [facility] H/O radiofrequency ablation (RFA) of nerve of lumbar spine S/P epidural steroid injection lumbar History of amputation right foot little toe History of esophagogastroduodenoscopy (EGD) History of colonoscopy History of Jyoti fundoplication H/O partial thyroidectomy right partial thyroidectomy (benign lesion) History of cardiac cath 2018, no stents at [facility] [place] History of cataract surgery bilateral History of carpal tunnel release bilateral History of cholecystectomy Hx of appendectomy Hx of foot surgery hammertoes and bunion corrections-feet bilat Family History Father Family history of diabetes mellitus Grandfather (Paternal) Family hx of colon cancer Other No family history of adverse response to anesthesia Social History Smoking Status: Never smoker Second Hand Exposure: Yes (IN THE PAST); Do You Dip or Chew Tobacco: No; Tobacco Cessation Education Requested by Patient: No Hx Alcohol Use: Yes Alcohol type: beer Hx Substance Use: No Preferred Language: Wolof Communication Ability: Effective Percussion Instrument Repairer Required: No Beliefs That Will Affect Care: None marital status: Single Current Living Situation: Alone How many Children do You have: 0 Other Information That Helps Us Care for You: No Feels Safe at Home: Yes Safety Concerns: Feels Safe At This Time Assistive Devices: CPAP and Glasses Review of Systems All systems reviewed & are unremarkable except as noted in HPI & below. Physical Exam On physical exam of the right shoulder, she has about 130 degrees forward elevation in the 130 degrees of abduction. She has 4 out of 5 motion at the full can test and external rotation.. Constitutional WD/WN, vitals as above Eyes PERRL, conjunctivae normal, anicteric sclerae ENMT external ear and nose normal, oropharynx normal Neck trachea midline, no thyromegaly Respiratory normal respiratory effort Cardiovascular RRR, no murmur, no edema Gastrointestinal (Abdomen) normal bowel sounds, soft, nontender, no hepatosplenomegaly Psychiatric A+Ox3, euthymic affect Results & Data Results & Data Laboratory Results . Diagnostic Findings MRI of the right shoulder shows a large chronic retracted rotator cuff tear. There is significant atrophy of the muscle bellies.. PG Care Time/CCT Total # of Minutes Spent Total Time Spent with Patient: Total time spent is greater than 50% in coordination of care (as documented) at patient's floor/unit and/or counseling patient: Coding Level of Care Code None Diagnoses Rotator cuff tear arthropathy of right shoulder M75.101; M12.811
[~2024-07-10 08:57] MED LIST changes: -ACETAMINOPHEN 500 MG TAB PO SCH; -BUPIVACAINE LIPOSOME/PF 266 MG, BUPIVACAINE/EPINEPHRINE 50 ML, SODIUM CHLORIDE 0.9% 30 ... INFIL SCH; -FAMOTIDINE 20 MG TAB PO SCH; -GABAPENTIN 300 MG CAP PO SCH; -LR 500ML BOLUS, THEN 15ML/HR IV SCH; -LR 60ML/HR IV SCH; -ROPIVACAINE 0.5% 5 MG/ML 30 ML VIAL ONE; +SODIUM CHLORIDE 0.9% PF INJ 10 ML VIAL ONE; -Scopolamine 1 MG TDSY TD SCH; -TRANEXAMIC ACID 1,000 MG **IV Intra-op IV SCH; -ceFAZolin 2000MG 2,000 MG/15 ML SYR IV SCH
[2024-07-10] MEDS ORDERED: fentaNYL citrate PF 100 MCG/2 ML VIAL ONE (09:32)
[2024-07-10] MEDS ORDERED: MIDAZOLAM HCL 1 MG/ML 2ML VIAL ONE (09:32)
[2024-07-10] MEDS: ACETAMINOPHEN 500 MG TAB PO SCH (09:49)
[2024-07-10] MEDS: FAMOTIDINE 20 MG TAB PO SCH (09:49)
[2024-07-10] MEDS: LR 60ML/HR IV SCH (09:50)
[2024-07-10] MEDS: GABAPENTIN 300 MG CAP PO SCH ×2 (09:50→20:15)
[2024-07-10] MEDS: dexAMETHasone**PF** 10 MG/ML VIAL IV SCH (09:50)
[2024-07-10] MEDS: LR 15ML/HR IV SCH (09:50)
--- NOTE | 2024-07-10 10:06 | History & Physical Bridge Note ---
Date of Service July 10, 2024 History & Physical Bridge Note I have examined the patient, reviewed the History & Physical and in the interval since the performance of the History & Physical I have noted the following changes of clinical significance: no changes noted
[2024-07-10] MEDS ORDERED: ONDANSETRON INJ 2 MG/ML 2 ML VIAL IV PRN ×2 (10:44→11:55)
[2024-07-10] MEDS ORDERED: ATROPINE SULFATE 0.1 MG/ML 10ML SYR IV PRN (10:44)
[2024-07-10] MEDS ORDERED: KETOROLAC 30 MG/ML VIAL IV PRN (10:44)
[2024-07-10] MEDS ORDERED: PROMETHAZINE HCL 6.25 MG in SODIUM CHLORIDE 0.9% 50 ML IV PRN (10:44)
[2024-07-10] MEDS ORDERED: fentaNYL citrate PF 100 MCG/2 ML VIAL IV PRN (10:44)
[2024-07-10] MEDS: TRANEXAMIC ACID 1,000 MG **IV Pre-op IV SCH (10:48)
[2024-07-10] MEDS: ceFAZolin 2000MG 2,000 MG/15 ML SYR IV SCH ×2 (11:00→18:14)
[2024-07-10] MEDS: ROPIV 0.5% 246mg, Ketorolac 30mg, EPINEPHrine 0.5mg in NSS INFIL SCH (11:46)
[2024-07-10] MEDS: ORTHO JOINT ANESTHETIC ONE (11:47)
[2024-07-10] MEDS: TRANEXAMIC ACID 1,000 MG **IV Intra-op IV SCH (11:53)
[2024-07-10] MEDS ORDERED: LIDOCAINE 2% 2 ML VIAL/AMP(20MG/ML) INFIL ONE (11:55)
[2024-07-10] MEDS ORDERED: METOCLOPRAMIDE HCL INJ 5 MG/ML 2 ML VIAL IV PRN (11:55)
[2024-07-10] MEDS ORDERED: MAGNESIUM HYDROXIDE SUSP 30 ML UDC PO PRN (11:55)
[2024-07-10] MEDS ORDERED: ROCURONIUM BROMIDE 10 MG/ML 5 ML VIAL IV ONE (11:55)
[2024-07-10] MEDS ORDERED: ACETAMINOPHEN 1,000 MG/100 ML VIAL IV PRN (11:55)
[2024-07-10] MEDS ORDERED: bisacodyL 10 MG SUPP PR PRN (11:55)
[2024-07-10] MEDS ORDERED: diphenhydrAMINE Capsule 25 MG CAP PO PRN (11:55)
[2024-07-10] MEDS ORDERED: NALOXONE HCL 0.4 MG/1 ML VIAL/CARP IV PRN (11:55)
[2024-07-10] MEDS ORDERED: ePHEDrine sulfate 50 MG/ML AMP ONE (11:55)
[2024-07-10] MEDS ORDERED: HYDROmorphone INJ 0.5 MG/0.5 ML SYR IV PRN (11:55)
[2024-07-10] MEDS ORDERED: ONDANSETRON INJ 2 MG/ML 2 ML VIAL ONE ×2 (11:55→12:23)
[2024-07-10] MEDS ORDERED: PROPOFOL IV EMULSION 10 MG/ML 20 ML VIAL IV ONE (11:55)
[2024-07-10] MEDS ORDERED: SUGAMMADEX SODIUM 200 MG/2 ML VIAL IV ONE (11:56)
[2024-07-10] MEDS ORDERED: ALBUTEROL HFA 8 GM INHALER INH PRN (11:58)
[2024-07-10] MEDS ORDERED: LORazepam 1 MG TAB PO PRN (11:58)
[2024-07-10] MEDS ORDERED: DICYCLOMINE HCL 10 MG CAP PO PRN (11:58)
[2024-07-10] MEDS ORDERED: NON-FORMULARY MEDICATION (Coenzyme Q10 [Coq-10] 100 mg Capsule) PO SCH (12:00)
[2024-07-10] MEDS ORDERED: NON-FORMULARY MEDICATION (Semaglutide [Ozempic] 0.25 mg or 0.5 mg (2 mg/3 mL) Pen Injector SQ SCH (12:00)
--- NOTE | 2024-07-10 12:03 | Operative Report ---
PG Post Operative Report Pre & Post Diagnosis Operation Date: 07/10/24 11:00 Pre-Op Diagnosis: Cuff tear arthropathy of the right shoulder with tendinopathy long head of the biceps tendon Post-Op Diagnosis: Cuff tear arthropathy of the right shoulder with tendinopathy long head of the biceps tendon I identified the patient and participated in the time-out.: Yes Procedure Operation Date: 07/10/24 11:00 Actual Procedures p Right Reverse Total Shoulder Arthroplasty(Right) with open biceps tenodesis as a distinct and separate procedure (modifier 59)- Jacob Dennis DO Surgeon Jacob Dennis DO Intake Rn None Estimated Blood Loss 100 Findings Consistent with Post-Op Diagnosis Specimens Right humeral head Description of Procedure A CPT code modifier 59: The long head of the biceps tendon was enlarged and inflamed consistent with tendinopathy. A tenodesis was opted. This was a separate and distinct portion of the procedure. For these reasons, a CPT code modifier 59 will be added to this case. Implants used: I used a [employer] Comprehensive reverse total shoulder arthroplasty system with a size 9 press fit micro humeral stem, a +6 offset humeral tray and a standard humeral bearing, a 25 mm baseplate with a 6.5 mm central screw and superior and inferior locking screws, and a size 36 mm eccentric glenosphere. Peggy arrived at [facility] for the above procedure. She was seen in the preoperative holding area and the operative extremity was identified and signed. She was given a preoperative antibiotic, TXA, and an interscalene nerve block. She was taken back to the operating room, laid on table in supine position, and put under general anesthesia. She was then put into the beachchair position. The shoulder was then prepped and draped in sterile fashion. A timeout was done and the patient and the operative extremity was properly identified. A deltopectoral approach was used. Dissection was taken down through the fascia and the deltoid was retracted laterally and the conjoined tendon was retracted medially. The anterior shoulder was exposed. The biceps groove was opened up and the biceps tendon was examined extensively. The biceps tendon demonstrated enlargement and inflammatory changes consistent with longstanding inflammation in the context of osteoarthritis and cuff arthropathy. The long head of the biceps tendon was then tenodesed to the upper border of the pectoralis major. This was a separate and distinct portion of the procedure. The subscapularis was then directly released off the lesser tuberosity with a peel technique. The inferior capsule was released and the humeral head was dislocated. A canal finding reamer was sent down the center of the humeral canal. Sequential reaming up to a size 9 reamer was done. Off that reamer, a proximal humeral resection guide was placed. The proximal humerus was resected at 135 of inclination and 25 of retroversion. Osteophytes were then removed and the glenoid was exposed. Time was spent doing a complete capsular and labral release. The glenoid guide was then placed in the inferior aspect of the glenoid. A 3.2 mm Steinmann pin was then placed into the glenoid vault at 10 of inclination. The glenoid baseplate was then reamed. The final size 25 mm baseplate was then impacted in the place. A 6.5 mm central screw was then placed followed by superior and inferior locking screws. A 36 mm eccentric glenosphere was then impacted into place. Surrounding soft tissues were then injected with 100 cc an orthopedic pain control cocktail. The proximal humerus was then exposed. Sequential broaching of the humerus up to a size 9 broach was done. Off that broach a +6 offset humeral tray was trialed. The shoulder was then reduced, brought through a full range of motion, and felt to be stable. The shoulder was then dislocated and the broach was removed. The final size 9 micro press-fit humeral stem was then impacted into place. A standard humeral bearing was then snapped onto a +6 offset humeral tray. The humeral tray was then impacted onto the humeral stem. The shoulder was once again reduced, brought through a full range of motion, and felt to be stable. The subscapularis was retracted and unable to be repaired. A dilute betadyne lavage was then done for 3 minutes. The joint was then irrigated with normal saline solution. Hemostasis was obtained. The interval was closed with 2-0 Vicryl suture. The skin was then closed with 2-0 Vicryl and raymon. A Silverlon dressing was placed and the arm was rested in a regular arm sling. She was then extubated and transferred to a hospital bed. She taken to the postanesthesia care unit in stable condition. She tolerated the procedure well. I attest to the content of the Intraoperative Record and any orders documented therein. Any exceptions are noted below.
[2024-07-10] MEDS ORDERED: PANTOprazole 40 MG TAB PO PRN (12:09)
--- NOTE | 2024-07-10 12:34 | XRay Report ---
XR shoulder RT min 2V routine HISTORY: 74 years-old Female Post shoulder surgery COMPARISON: Chest radiograph 06/09/2024 TECHNIQUE: 2 views of the right shoulder FINDINGS: Satisfactory alignment of the right shoulder arthroplasty. Overlying skin raymon with expected posto perative soft tissue swelling and deep tissue air. No acute fracture, dislocation or unexpected opaqu e foreign body. IMPRESSION: Right shoulder arthroplasty with expected postoperative changes. ACT 112: Negative or not required by law. The above report was generated using voice recognition software. It may contain grammatical, syntax o r spelling errors. Electronically signed by: Pancho Duran M.D. 07/10/2024 12:33 PM
--- NOTE | 2024-07-10 14:09 | Anesthesiology Progress Note ---
Date of Service July 10, 2024 Anesthesia Post Procedure Vital Signs Vital Signs: Temp Pulse Pulse Resp BP Pulse Ox O2 Del Method 07/10/24 14:00 93 H 19 149/75 H 92 Room Air 07/10/24 13:45 93 H 18 134/68 95 Room Air 07/10/24 13:30 36.4 C L 91 H 23 133/80 93 Room Air 07/10/24 13:15 36.4 C L 92 H 18 103/88 94 Room Air 07/10/24 13:05 36.4 C L 92 H 12 115/91 94 Room Air 07/10/24 12:55 36.4 C L 94 H 18 157/75 H 94 Room Air 07/10/24 12:45 36.4 C L 91 H 16 149/72 H 97 Room Air 07/10/24 12:35 90 22 155/67 H 99 Oxymask 07/10/24 12:25 92 H 21 160/71 H 100 Oxymask 07/10/24 12:15 36.0 C L 98 H 16 98/79 L 98 Oxymask 07/10/24 09:25 36.9 C 66 20 139/55 L 96 Room Air O2 Flow Rate 07/10/24 14:00 07/10/24 13:45 07/10/24 13:30 07/10/24 13:15 07/10/24 13:05 07/10/24 12:55 07/10/24 12:45 07/10/24 12:35 3 07/10/24 12:25 5 07/10/24 12:15 5 07/10/24 09:25 Transfer of Care Handoff Completed per policy Notes Mental Status: alert / awake / arousable Patient Amnestic to Procedure: Yes Nausea / Vomiting: adequately controlled Pain: adequately controlled Airway Patency, RR, SpO2: stable & adequate BP & HR: stable & adequate Hydration State: stable & adequate Anesthetic Complications: no major complications apparent
[2024-07-10 15:08] VITALS: RESP 16
[2024-07-10] MEDS ORDERED: PHARMACY GLYCEMIC MGMT CONSULT PRN (15:21)
[2024-07-10] MEDS: SODIUM CHLORIDE 0.9% 1,000 ML IV SCH (15:29)
[2024-07-10] MEDS: BENRALIZUMAB 30 MG/ML SQ SCH (16:08)
[2024-07-10] MEDS: AUTO INJECTOR SQ SCH (16:08)
[2024-07-10] MEDS: KETOROLAC TROMETHAMINE 15 MG/ML VIAL IV SCH (16:13)
[2024-07-10] MEDS ORDERED: metFORMIN HCL ER 500 MG TABCR PO SCH (16:30)
[2024-07-10] MEDS: INSULIN ASPART PER UNIT CHARGE SC SCH (17:43)
[2024-07-10] MEDS: LANTUS PER UNIT CHARGE SC ONE (17:43)
[2024-07-10] MEDS: HYDROXYCHLOROQUINE SULFATE 200 MG TAB PO SCH (20:15)
[2024-07-10] MEDS: CALCIUM POLYCARBOPHIL 625MG TAB PO SCH (20:15)
[2024-07-10] MEDS: DOCUSATE SODIUM 100 MG CAP PO SCH (20:15)
[2024-07-10] MEDS: MONTELUKAST SODIUM 10 MG TABLET PO SCH (20:15)
[2024-07-10] MEDS: POTASSIUM CHLORIDE 10 MEQ TABCR PO SCH (20:15)
[2024-07-10] MEDS: MAGNESIUM OXIDE 400 MG TAB PO SCH (20:15)
[2024-07-10] MEDS: DULoxetine HCL 30 MG CAP PO SCH (20:16)
[2024-07-10] MEDS: SENNA 8.6 MG TAB PO SCH (20:16)
[2024-07-10] MEDS: BACLOFEN 10 MG TAB PO SCH (20:16)
[2024-07-10] MEDS: FLUTICASONE/VILANTEROL 200/25MCG 14 PUFFS/INHALER INH SCH (20:21)
--- NOTE | 2024-07-11 06:58 | Discharge Summary ---
Date of Service July 11, 2024 Admission HPI (Per Admitting) Peggy is a pleasant 73-year-old female who has been dealing with chronic increasing right shoulder pain. She had an MRI 2 years ago, which showed a high-grade partial-thickness cuff tear. She has now some more weakness in her shoulder and trouble with doing activities away from body. I sent her for an MRI. The MRI showed a large retracted rotator cuff tear. After failing conservative treatment, she has elected proceed with a right reverse shoulder arthroplasty. Admission Exam (Per Admitting) On physical exam of the right shoulder, she has about 130 degrees forward elevation in the 130 degrees of abduction. She has 4 out of 5 motion at the full can test and external rotation.. Principal Diagnosis Same as "Discharge Diagnosis" noted below under Discharge Instructions. Discharge Data Procedures Performed Operation Date: 07/10/24 11:00 Actual Procedures p Right Reverse Total Shoulder Arthroplasty(Right) - Jacob Dennis DO Ordered Studies 07/10/24 05:00 US - OR guided needle placemen Routine Hospital Course (1) Status post reverse total replacement of right shoulder: On July 10, 2024 Peggy arrived at [facility] and underwent a right reverse shoulder replacement without complication. She had a general anesthetic and a left interscalene nerve block. Postoperatively she was placed in a sling and transferred to the general orthopedic floors. Her hospital course was uneventful. On postop day #1, her vital signs were stable and her pain was well-controlled. She was able to participate well with physical therapy doing ambulation and range of motion exercises. She was then discharged to home. She will follow-up orthopedics in 2 weeks. PG Care Time/CCT Total # of Minutes Spent Total Time Spent with Patient: Total time spent is greater than 50% in coordination of care (as documented) at patient's floor/unit and/or counseling patient: Discharge Plan Discharge Items Patient Disposition: Home - Self-Care Reason For Visit: Degenerative Joint Disease Right Shoulder Discharge Diagnosis: Right reverse shoulder replacement Activity: Per Instructions section Non-emergency contact: Surgeon Call non-emergency contact if: your wound has increased redness and your wound has increased drainage Follow-up/Referrals: Diana Mclean M.D. [Primary Care Provider] - Diet: Regular Addtl Attending Provider Instructions: Activity and Therapy Recommendations: * If you are using [facility] then therapy will be provided at your home until they feel you have accomplished all of your goals. * If you are using [facility] then Physical Therapy will be provided until they feel you are ready to start Outpatient Physical Therapy. * If you are not using home therapy then Outpatient Physical Therapy should start about 3-5 days from your day of surgery. Therapy will last about 8-12 weeks * Wear your sling for 3 weeks, unless otherwise instructed. You may remove your sling to shower and to dress, but otherwise, you should be in your sling at all times, including while sleeping * The shoulder replacement is very stable and you can use your hand while in the sling * You were shown a series of exercises in the hospital. Do these exercises daily including the exercises you were shown in physical therapy. Medications: * Narcotic You will likely be sent home from the hospital with a prescription for the narcotic pain medication that worked best throughout your stay. * Cefadroxil -take the antibiotic twice a day for 10 days to help prevent infection. * Other medications may be prescribed for specific circumstances. If you have any questions, please call the office at . * Resume previous home medications unless otherwise instructed Dressing Care: Leave the Silverlon dressing in place for 7 days. After 7 days you may remove the dressing. If the incision is not draining then you may leave the raymon open to air. If there is a little bit of drainage or if the raymon are getting stuck on your clothing then cover the incision with a dry dressing. The raymon will be removed at your 2 week follow-up appointment. Showering: You may shower with the Silverlon dressing in place. Do not let the shower spray hit the dressing directly. Pat the Silverlon dressing dry. If the dressing becomes wet underneath, then simply remove the dressing. Keep the incision dry until you are 7 days out from the day of surgery. After 7 days you may remove the Silverlon dressing and shower with the raymon exposed. Let soapy water run over the raymon and pat them dry. Do not scrub or soak the incision. Things To Watch For: * Drainage from the incision site that occurs more than one week after your surgery. * Increased redness at the incision site. * Fever above 102 degrees Fahrenheit. * Unusual chest pain or shortness of breath. * Call [facility] at with any of the above problems Follow-Up Visit: Follow-up with Dr. Dennis's PA (Jacob Griggs) 2-3 weeks after your day of surgery. He will remove your raymon and answer any questions. If you have any additional questions or concerns, Dr Dennis is usually in the office at the same time and will be available An appointment was probably scheduled when you signed-up for surgery in the office. If you have any questions call More detailed instructions as well as Frequently Asked Questions were provided in a folder by our office when you signed-up for surgery. Please review these instructions when you get home. If you have any further questions or concerns, please feel free to call the offi ce at [phone] Pending Studies at Discharge: No Stand-Alone Forms: My [facility] [employer], Smoking Cessation Medications and DC Order Prescriptions: New oxycodone 5 mg Tablet 5 mg PO Q4H PRN (Reason: pain) Qty: 30 0RF cefadroxil 500 mg capsule 500 mg PO BID 10 Days Qty: 20 0RF Continued multivitamin Tablet 1 tab PO QAM fluticasone propion-salmeterol [Advair Diskus] 250-50 mcg/dose Blister With Device 1 inh INHALATION BID potassium 99 mg Tablet 99 mg PO HS baclofen 10 mg Tablet 10 mg PO BID levothyroxine 125 mcg Tablet 125 mcg PO QAM gabapentin 300 mg Capsule 300 mg PO HS fiber Tablet 1 - 2 tab PO BID montelukast [Singulair] 10 mg Tablet 10 mg PO HS lorazepam 1 mg Tablet 1 mg PO DAILY PRN (Reason: Anxiety) Rx Instructions: took half tablet (today) morning of surgery hydroxychloroquine [Plaquenil] 200 mg Tablet 200 mg PO QPM albuterol sulfate 90 mcg/actuation Hfa Aerosol Inhaler 1 inh INHALATION QID PRN (Reason: sob) metformin 500 mg Tablet Extended Release 24 Hr 1,000 mg PO QPM dicyclomine 10 mg Capsule 10 mg PO TID PRN (Reason: Abdominal Pain) omeprazole 20 mg Tablet,Delayed Release (Dr/Ec) 20 mg PO QAM PRN (Reason: Indigestion/heartburn) magnesium oxide 400 mg magnesium Capsule 400 mg PO BID Probiotic 10 billion cell Capsule 10,000 mmu cells PO QAM metformin 500 mg Tablet 500 mg PO QAM docusate sodium [Colace] 100 mg Capsule 100 mg PO QAM valsartan-hydrochlorothiazide 160-25 mg Tablet 1 tab PO QAM ezetimibe [Zetia] 10 mg Tablet 10 mg PO QAM acetaminophen 500 mg capsule 1,000 mg PO TID PRN (Reason: Pain) Rx Instructions: Take 3 times per day to lessen pain. coenzyme Q10 [CoQ-10] 100 mg Capsule 100 mg PO Q2D duloxetine 30 mg Capsule,Delayed Release(Dr/Ec) 30 mg PO QPM cholecalciferol (vitamin D3) [Vitamin D3] 125 mcg (5,000 unit) Tablet 125 mcg PO QAM Fasenra Pen 30 mg/mL Auto-Injector 30 mg SUBCUT Q60D Ozempic 0.25 mg or 0.5 mg (2 mg/3 mL) Pen Injector 0.5 mg SUBCUT WK meloxicam 15 mg tablet 15 mg PO DAILY Discharge Orders: Discharge Order (Routine); Ordered 07/11/24 Ordered By: Jacob Dennis Admission Data Admit Date/Time: 07/10/24 11:55 Attending Provider: Jacob Dennis Admit Provider: Jacob Dennis Primary Care Provider: Diana Mclean
--- NOTE | 2024-07-11 06:59 | Orthopedic Progress Note ---
Date of Service July 11, 2024 Assessment & Plan (1) Status post reverse total replacement of right shoulder: Overall she is doing very well. She is not having much pain in the right shoulder. She will be seen by physical therapy today for ambulation and range of motion exercises. She can be discharged to home later today. She will follow-up with orthopedics in 2 weeks. Roly Woods was seen and examined at bedside this morning. Overall she is doing fairly well. She is not having much pain in the right shoulder. She was able to get some sleep last night. She has no complaints.. Review of Systems All systems reviewed & are unremarkable except as noted in HPI & below. Physical Exam On physical examination of the right shoulder, the dressing is clean and dry. She is wearing her sling as instructed. The nerve block is still in effect.. Results & Data Results & Data Laboratory Results . Diagnostic Findings Postoperative x-rays of the right shoulder show the prosthesis to be in anatomic alignment without any evidence of fracture complication, or loosening.. PG Care Time/CCT Total # of Minutes Spent Total Time Spent with Patient: Total time spent is greater than 50% in coordination of care (as documented) at patient's floor/unit and/or counseling patient: Coding Level of Care Code 05516 Post Operative Follow-Up Diagnoses Status post reverse total replacement of right shoulder Z96.611
[2024-07-11 07:12] VITALS: BP 145/71; PULSE 55; TEMP 97.7; O2SAT 92
[2024-07-11] MEDS: oxyCODONE HCL IR 5 MG TAB (IMMEDIATE RELEASE) PO PRN (07:35)
[2024-07-11] MEDS: ASPIRIN 81 MG ECTAB PO SCH (08:07)
[2024-07-11] MEDS: hydroCHLOROthiazide 25 MG TAB PO SCH (08:07)
[2024-07-11] MEDS: VALSARTAN 80 MG TAB PO SCH (08:07)
[2024-07-11] MEDS: EZETIMIBE 10 MG TAB PO SCH (08:08)
[2024-07-11] MEDS: LEVOTHYROXINE SODIUM 125 MCG TABLET PO SCH (08:08)
[2024-07-11] MEDS: CHOLECALCIFEROL 125 MCG (5,000 UNITS) TAB PO SCH (08:08)
[2024-07-11] MEDS: dexAMETHasone 4 MG TAB PO SCH (08:08)
[2024-07-11] MEDS: MULTIVITAMIN TAB PO SCH (08:08)
[2024-07-11] MEDS: LACTOBACILLUS ACIDOPHILUS 1 GM PACK PO SCH (08:09)
[2024-07-11] MEDS ORDERED: NON-FORMULARY MEDICATION (Multivitamin Tablet) PO SCH (09:00)
[2024-07-11] MEDS ORDERED: metFORMIN HCL 500 MG TAB PO SCH (09:00)
[2024-07-11] MEDS ORDERED: DOCUSATE SODIUM 100 MG CAP PO SCH (09:00)
== END 2024-07-11 11:48 | disposition home or self-care (01) ==
LOC: ASU 08:57 → 3E 08:57